=== PATIENT | male | born 1960 | race Caucasian/White ===

== ENCOUNTER 2018-09-11 17:10 | Emergency (ER) | payer BC, OTHER ==
[~2018-09-11] VITALS: Ht 172.7 cm; Wt 108.9 kg
[~2018-09-11 17:10] MED LIST: CYCL10TA9 PO; NAPR-243 PO
--- OUTSIDE RECORDS SUMMARY | 2018-09-11 17:15 | XMS REPORT | Continuity of Care Document ---
Author Organization Unknown Address Unknown Allergies Active Description Code Type Severity Reaction Onset Reported/Identified Relationship to Patient Clinical Status Yes NKANo Known Allergies NKA Miscellaneous Allergy Mild N/A 04/30/2009 Medications There is no data. Problems Date Dx Coded Attending Type Code Diagnosis Diagnosed By 11/19/2011 Ot 723.1 CERVICALGIA 09/12/2012 PAUL HWANG, DOREEN Barrett Ot 784.0 HEADACHE Procedures There is no data. Results There is no data. Encounters ACCT No. Visit Date/Time Discharge Status Pt. Type Provider Facility Loc./Unit Complaint [id number] 09/12/2012 17:29:00 09/12/2012 23:59:59 CLS Outpatient [id number] 09/12/2012 18:24:00 09/12/2012 20:41:00 DIS Emergency DOREEN MILLER MD [facility] ER HEAD PAIN [id number] 09/11/2018 17:11:00 ACT Emergency ABDIRAHMAN FELIX MD [facility] ER L SIDE ABD PAIN [id number] 11/19/2011 02:37:00 Document Registration
--- OUTSIDE RECORDS SUMMARY | 2018-09-11 17:15 | XMS REPORT | Continuity of Care Document ---
Author Author [facility] Organization [facility] Address Unknown Phone Unavailable Care Team Providers Care Production Proofreader Name Role Phone NO, LOCAL PHYSICIAN PP Unavailable Insurance Providers Payer Name Policy Number Subscriber Name [id number] Milly Youssef 02 Advance Directives Directive Response Recorded Date Advance Directives N 09/12/12 6:33pm Problems No Known Problems or Medical conditions. Social History History Response Recorded Date/Time Alcohol Use Rarely Uses 09/12/12 6:33pm Recreational Drug Use N 09/12/12 6:33pm Allergies, Adverse Reactions, Alerts Allergen Type Severity Reaction Last Updated No Known Allergies Allergy Mild 04/30/09 Medications Medication Dose Units Route Sig Qty Days Naproxen (Naprosyn) 800 Mg PO BID PRN Naproxen (Naprosyn) 1 Each PO BID PRN 30 Cyclobenzaprine HCl (Cyclobenzaprine Hcl) 1 Each PO Q8HR PRN 20 Cyclobenzaprine HCl (Cyclobenzaprine Hcl) 1 Each PO Q8HR PRN 20 Naproxen (Naprosyn) 1 Each PO BID PRN 20 Response Recorded Date/Time Status not known Unknown Results Test Date Result Interp. Ref. Range Alanine Aminotransferase (ALT/SGPT) August 28, 2005 12:29pm 63 U/L N 30-65 Albumin August 28, 2005 12:29pm 3.5 G/DL N 3.4-5.0 Alkaline Phosphatase August 28, 2005 12:29pm 71 U/L N 50-136 Aspartate Amino Transf (AST/SGOT) August 28, 2005 12:29pm 21 U/L N 15-37 BUN/Creatinine Ratio August 28, 2005 12:29pm 13 - Basophils # (Auto) September 12, 2012 7:48pm 0.0 10^3/uL N 0.0-0.1 Basophils (%) (Auto) September 12, 2012 7:48pm 1 % N 0-10 Blood Urea Nitrogen August 28, 2005 12:29pm 16 MG/DL N 7-18 Calcium Level August 28, 2005 12:29pm 8.6 MG/DL N 8.5-10.1 Carbon Dioxide Level August 28, 2005 12:29pm 28 MMOL/L N 21-32 Chloride Level August 28, 2005 12:29pm 101 MMOL/L N 101-110 Creatinine August 28, 2005 12:29pm 1.2 MG /DL N 0.6-1.3 Eosinophils # (Auto) September 12, 2012 7:48pm 0.3 10^3/uL N 0.0-0.3 Eosinophils (%) (Auto) September 12, 2012 7:48pm 4 % N 0-10 Glucose Level August 28, 2005 12:29pm 109 MG/DL N 70-126 Hematocrit September 12, 2012 7:48pm 46 % N 40-54 Hemoglobin September 12, 2012 7:48pm 15.6 G/ DL N 13.3-17.7 Lymphocytes # (Auto) September 12, 2012 7:48pm 2.1 X 10^3 N 1.0-4.0 Lymphocytes (%) (Auto) September 12, 2012 7:48pm 27 % N 12-44 Mean Corpuscular Hemoglobin September 12, 2012 7:48pm 30 PG N 25-34 Mean Corpuscular Hemoglobin Concent September 12, 2012 7:48pm 34 G/DL N 32-36 Mean Corpuscular Volume September 12, 2012 7:48pm 88 FL N 80-99 Mean Platelet Volume September 12, 2012 7:48pm 9.5 FL N 7.4-10.4 Monocytes # (Auto) September 12, 2012 7:48pm 0.6 X 10^3 N 0.0-1.0 Monocytes (%) (Auto) September 12, 2012 7:48pm 8 % N 0-12 Neutrophils # (Auto) September 12, 2012 7:48pm 4.6 X 10^3 N 1.8-7.8 Neutrophils (%) (Auto) September 12, 2012 7:48pm 60 % N 42-75 Platelet Count September 12, 2012 7:48pm 278 10^3/uL N 130-400 Potassium Level August 28, 2005 12:29pm 4.7 MMOL/L N 3.6-5.0 Red Blood Count September 12, 2012 7:48pm 5.21 10^6/uL N 4.35-5.85 Red Cell Distribution Width September 12, 2012 7:48pm 13.4 % N 10.0-14.5 Sodium Level August 28, 2005 12:29pm 135 MMOL/L N 135-145 Total Bilirubin August 28, 2005 12:29pm 0.3 MG/DL N 0.0-1.0 Total Protein August 28, 2005 12:29pm 6.6 G/DL N 6.4-8.2 Urine Bacteria August 28, 2005 12:20pm Trace - Urine Bilirubin August 28, 2005 12:20pm Negative - Urine Casts August 28, 2005 12:20pm None - Urine Clarity August 28, 2005 12:20pm Clear - Urine Color August 28, 2005 12:20pm Yellow - Urine Crystals August 28, 2005 12:20pm None - Urine Culture Indicated August 28, 2005 12:20pm Yes - Urine Glucose (UA) August 28, 2005 12:20pm Negative - Urine Ketones August 28, 2005 12:20pm Negative - Urine Leukocyte Esterase August 28, 2005 12:20pm Negative - Urine Mucus August 28, 2005 12:20pm None - Urine Nitrate August 28, 2005 12:20pm Negative - Urine Protein August 28, 2005 12:20pm Negative - Urine RBC August 28, 2005 12:20pm 25-50 / HPF H - Urine Specific [place] August 28, 2005 12:20pm 1.015 L - Urine Squamous Epithelial Cells August 28, 2005 12:20pm 0-2 - Urine Urobilinogen August 28, 2005 12:20pm Normal MG/DL - Urine WBC August 28, 2005 12:20pm 10-25 / HPF H - Urine pH August 28, 2005 12:20pm 8.0 - White Blood Count September 12, 2012 7:48pm 7.6 10^3/uL N 4.3-11.0 Procedures Procedure Code Date Urine Culture 08/28/05 Encounters Encounter Location Date/Time Departed Emergency Room [facility] 6:24pm
[2018-09-11] MEDS ORDERED: ONDANSETRON 4 MG/2 ML (SDV) Z0FRAN ONE (17:34)
--- NOTE | 2018-09-11 17:40 | ED Abdominal Pain ---
General Chief Complaint: Abdominal/GI Problems Stated Complaint: L SIDE ABD PAIN Nursing Triage Note: TO TRIAGE WITH COMPLAINTS OF LEFT SIDED FLANK PAIN THAT STARTED AT 2PM. HX OF KIDNEY STONES. STATES HE TOOK X2 ARTHRITIS PAIN MEDS. Sepsis Screen: No Definite Risk Source of Information: Patient Exam Limitations: No Limitations History of Present Illness Date Seen by Provider: Sep 11, 2018 Time Seen by Provider: 17:39 Initial Comments To ER with reports of left sided flank pain that began suddenly at 2 PM today. He's had some intermittent diaphoresis and nausea. History of kidney stones and this feels similar to his previous kidney stones were on the right side, he's never had a left-sided stone. Stools have been a bit loose today. No dysuria. No fevers chills or vomiting. Timing/Duration: 4-6 Hours Severity/Quality: Severe Location: Flank Radiation: No Radiation Activities at Onset: None Associated Symptoms: Diaphoresis; No Fever/Chills; Nausea/Vomiting Allergies and Home Medications Allergies Coded Allergies: NKANo Known Allergies (Unverified Allergy, Mild, 09/11/18) Home Medications Naproxen 500 Mg Tablet, 800 MG PO BID PRN, (Reported) Patient Home Medication List Home Medication List Reviewed: Yes Review of Systems Review of Systems Constitutional: see HPI, diaphoresis EENTM: No Symptoms Reported Respiratory: No Symptoms Reported Cardiovascular: No Symptoms Reported Gastrointestinal: See HPI, Abdominal Pain, Nausea Genitourinary: See HPI; Denies Frequency; Flank Pain Musculoskeletal: no symptoms reported Skin: no symptoms reported Psychiatric/Neurological: No Symptoms Reported Endocrine: No Symptoms Reported Hematologic/Lymphatic: No Symptoms Reported Past Rfoypfi-Xicozg-Jpezzv Hx Patient Social History Alcohol Use: Regular Use Number of Drinks Today: 2 Alcohol Beverage of Choice: Whiskey Recreational Drug Use: No Smoking Status: Current Everyday Smoker Recent Foreign Travel: No Contact w/Someone Who Travel: No Recent Infectious Disease Expo: No Physical Abuse: No Sexual Abuse: No Mistreated: No Fear: No Seasonal Allergies Seasonal Allergies: No Past Medical History Surgeries: Yes (FEMUR TUMOR, L SHOULDER, KIDNEY STONE) Respiratory: No Cardiac: Yes Angina Neurological: No Kidney Stones Gastrointestinal: No Musculoskeletal: Yes Arthritis, Chronic Back Pain Endocrine: Yes Diabetes, 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 oz. 108.100548pq; BMI Method:Stated General Appearance: WD/WN, no apparent distress HEENT: PERRL/EOMI, normal ENT inspection Neck: non-tender, full range of motion Respiratory: normal breath sounds, no respiratory distress, no accessory muscle use Cardiovascular: regular rate, rhythm, no murmur Gastrointestinal: normal bowel sounds, soft, tenderness Extremities: normal range of motion, non-tender Back: No CVA tenderness (L) Neurologic/Psychiatric: alert, normal mood/affect, oriented x 3 Skin: normal color, warm/dry Progress/Results/Core Measures Results/Orders Lab Results Laboratory Tests Test 09/11/18 17:31 09/11/18 17:42 Range/Units White Blood Count 8.6 4.3-11.0 10^3/uL Red Blood Count 5.08 4.35-5.85 10^6/uL Hemoglobin 15.0 13.3-17.7 G/DL Hematocrit 45 40-54 % Mean Corpuscular Volume 88 80-99 FL Mean Corpuscular Hemoglobin 30 25-34 PG Mean Corpuscular Hemoglobin Concent 34 32-36 G/DL Red Cell Distribution Width 14.8 H 10.0-14.5 % Platelet Count 275 130-400 10^3/uL Mean Platelet Volume 9.4 7.4-10.4 FL Neutrophils (%) (Auto) 68 42-75 % Lymphocytes (%) (Auto) 22 12-44 % Monocytes (%) (Auto) 7 0-12 % Eosinophils (%) (Auto) 3 0-10 % Basophils (%) (Auto) 1 0-10 % Neutrophils # (Auto) 5.8 1.8-7.8 X 10^3 Lymphocytes # (Auto) 1.9 1.0-4.0 X 10^3 Monocytes # (Auto) 0.6 0.0-1.0 X 10^3 Eosinophils # (Auto) 0.2 0.0-0.3 10^3/uL Basophils # (Auto) 0.1 0.0-0.1 10^3/uL Neutrophils % (Manual) 73 % Lymphocytes % (Manual) 5 % Monocytes % (Manual) 1 % Band Neutrophils 20 % Blood Morphology Comment NORMAL Sodium Level 139 135-145 MMOL/L Potassium Level 3.8 3.6-5.0 MMOL/L Chloride Level 104 98-107 MMOL/L Carbon Dioxide Level 18 L 21-32 MMOL/L Anion Gap 17 H 5-14 MMOL/L Blood Urea Nitrogen 13 7-18 MG/DL Creatinine 0.83 0.60-1.30 MG/DL Estimat Glomerular Filtration Rate > 60 BUN/Creatinine Ratio 16 Glucose Level 113 H 70-105 MG/DL Calcium Level 9.5 8.5-10.1 MG/DL Urine Color YELLOW Urine Clarity CLEAR Urine pH 5 5-9 Urine Specific [place] 1.025 H 1.016-1.022 Urine Protein 1+ H NEGATIVE Urine Glucose (UA) NEGATIVE NEGATIVE Urine Ketones 3+ H NEGATIVE Urine Nitrite NEGATIVE NEGATIVE Urine Bilirubin NEGATIVE NEGATIVE Urine Urobilinogen NORMAL NORMAL MG/DL Urine Leukocyte Esterase NEGATIVE NEGATIVE Urine RBC (Auto) 3+ H NEGATIVE Urine RBC 10-25 H /HPF Urine WBC NONE /HPF Urine Squamous Epithelial Cells 2-5 /HPF Urine Crystals NONE /LPF Urine Bacteria NEGATIVE /HPF Urine Casts NONE /LPF Urine Mucus MODERATE H /LPF Urine Culture Indicated NO My Orders Orders - MAG GREER APRN Ua Culture If Indicated (09/11/18 17:31) Cbc And Manual Diff (09/11/18 17:31) Basic Metabolic Panel (09/11/18 17:31) Ed Iv/Invasive Line Start (09/11/18 17:31) Ct Abd/Pelvis Wo(Kidney Stone) (09/11/18 17:31) Abdomen/Kub 1view (09/11/18 17:31) Ns Iv 1000 Ml (Sodium Chloride 0.9%) (09/11/18 17:45) Ketorolac Injection (Toradol Injection) (09/11/18 17:45) Ondansetron Injection (Zofran Injectio (09/11/18 17:34) Fentanyl Injection (Sublimaze Injection (09/11/18 18:30) Promethazine Injection (Phenergan Injec (09/11/18 18:30) Medications Given in ED Current Medications Medications Dose Ordered Sig/Edgar Route Start Time Stop Time Status Last Admin Dose Admin Ketorolac Tromethamine 15 mg ONCE ONCE IVP 09/11/18 17:45 09/11/18 17:46 DC 09/11/18 17:41 15 MG Ondansetron HCl 4 mg STK-MED ONCE .ROUTE 09/11/18 17:34 09/11/18 17:37 DC 09/11/18 17:41 8 MG Vital Signs/I&O 09/11/18 17:10 Temp 97.7 Pulse 81 Resp 16 B/P (MAP) 142/101 (115) Pulse Ox 96 O2 Delivery Room Air Blood Pressure Mean: 115 Diagnostic Imaging Diagonstic Imaging: CT Comments [facility] REC#: [id number] PT STATUS: REG ER : 1960 PHYSICIAN: MAG GREER APRN ADMIT DATE: 09/11/18/ER Draft Date of Exam:09/11/18 CT ABD/PELVIS WO(KIDNEY STONE) PROCEDURE: CT urinary tract, rule out kidney stone. TECHNIQUE: Multiple contiguous axial images were obtained through the abdomen and pelvis without the use of intravenous contrast. Auto Exposure Controls were utilized during the CT exam to meet ALARA standards for radiation dose reduction. INDICATION: Left flank pain The lung bases are clear. There is fatty infiltration of the liver. Pancreas is not enlarged. Spleen is normal. Adrenals are normal. There is no mass, calculus or hydronephrosis seen in either kidney. There is a 1 cm low-density area in the lateral margin of the left kidney that is probably a cyst but nonemergent evaluation with ultrasound and/or contrast CT would be more definitive. Appendix is normal. Small bowel is not dilated. Colon is unremarkable. There is some calcific atherosclerosis of the aorta but no aneurysm. There is a left inguinal hernia containing fat. Prostate is not enlarged. There is a 3 mm calculus in the urinary bladder that could be a recently passed stone. IMPRESSION: There is a 3 mm calculus in the bladder. There is hepatic steatosis. There is left inguinal hernia containing fat. Dictated on workstation # [id number] Dict: 09/11/18 1819 Trans: 09/11/18 1826 [id number] [id number] Interpreted by: MARCELINO ROSARIO MD Electronically signed by: Departure Communication (Admissions) NAME: [facility] REC#: [id number] PT STATUS: REG ER : 1960 PHYSICIAN: MAG GREER APRN ADMIT DATE: 09/11/18/ER Draft Date of Exam:09/11/18 CT ABD/PELVIS WO(KIDNEY STONE) PROCEDURE: CT urinary tract, rule out kidney stone. TECHNIQUE: Multiple contiguous axial images were obtained through the abdomen and pelvis without the use of intravenous contrast. Auto Exposure Controls were utilized during the CT exam to meet ALARA standards for radiation dose reduction. INDICATION: Left flank pain The lung bases are clear. There is fatty infiltration of the liver. Pancreas is not enlarged. Spleen is normal. Adrenals are normal. There is no mass, calculus or hydronephrosis seen in either kidney. There is a 1 cm low-density area in the lateral margin of the left kidney that is probably a cyst but nonemergent evaluation with ultrasound and/or contrast CT would be more definitive. Appendix is normal. Small bowel is not dilated. Colon is unremarkable. There is some calcific atherosclerosis of the aorta but no aneurysm. There is a left inguinal hernia containing fat. Prostate is not enlarged. There is a 3 mm calculus in the urinary bladder that could be a recently passed stone. IMPRESSION: There is a 3 mm calculus in the bladder. There is hepatic steatosis. There is left inguinal hernia containing fat. Dictated on workstation # [id number] Dict: 09/11/18 1819 Trans: 09/11/18 1826 GIO [id number] Interpreted by: MARCELINO ROSARIO MD Electronically signed by: Impression Primary Impression: Kidney stone Disposition: 01 HOME, SELF-CARE Condition: Stable Departure-Patient Inst. Decision time for Depature: 18:29 Referrals: NO,LOCAL PHYSICIAN (PCP/Family) Primary Care Physician Patient Instructions: Kidney Stones (DC) Add. Discharge Instructions: 1. You have recently passed a kidney stone. Her pain should improve in the next couple of hours. You have an area on the left kidney that is most likely a benign cyst however you should have an ultrasound of the left kidney in the next month or so to further evaluate and confirm that diagnosis. Your primary care provider and arrange that. All discharge instructions reviewed with patient and/or family. Voiced understanding. Scripts Ondansetron (Ondansetron Odt) 8 Mg Tab.rapdis 8 MG PO Q6H PRN for NAUSEA/VOMITING, #10 TAB Prov: MAG GREER APRN 09/11/18 Hydrocodone/Acetaminophen ([place] 5-325 Tablet) 1 Each Tablet 1 EACH PO Q6H PRN for PAIN-MODERATE MDD 10, #10 TAB Prov: MAG GREER APRN 09/11/18 MAG GREER APRN Sep 11, 2018 17:40
[2018-09-11 17:45] LABS: BASOPHILS # (AUTO) 0.1 10^3/uL (0.0-0.1); BASOPHILS % (AUTO) 1 % (0-10); EOSINOPHILS # (AUTO) 0.2 10^3/uL (0.0-0.3); EOSINOPHILS % (AUTO) 3 % (0-10); HEMATOCRIT 45 % (40-54); LYMPHOCYTES # (AUTO) 1.9 X 10^3 (1.0-4.0); LYMPHOCYTES % (AUTO) 22 % (12-44); MEAN CORPUSCULAR HEMOGLOBIN 30 PG (25-34); MEAN CORPUSCULAR HGB CONC 34 G/DL (32-36); MEAN CORPUSCULAR VOLUME 88 FL (80-99); MEAN PLATELET VOLUME 9.4 FL (7.4-10.4); MONOCYTES # (AUTO) 0.6 X 10^3 (0.0-1.0); MONOCYTES % (AUTO) 7 % (0-12); NEUTROPHILS # (AUTO) 5.8 X 10^3 (1.8-7.8); NEUTROPHILS % (AUTO) 68 % (42-75); PLATELET COUNT 275 10^3/uL (130-400); RED CELL DISTRIBUTION WIDTH 14.8 % (10.0-14.5); WHITE BLOOD COUNT 8.6 10^3/uL (4.3-11.0)
[2018-09-11] MEDS ORDERED: NS IV 1000 ML 1,000 ML IV SCH (17:45)
[2018-09-11] MEDS ORDERED: KETOROLAC 30 MG/ML VIAL IVP ONE (17:45)
[2018-09-11 17:50] LABS: BILIRUBIN,URINE NEGATIVE (NEGATIVE); CLARITY,URINE CLEAR; COLOR,URINE YELLOW; GLUCOSE, URINE (UA) NEGATIVE (NEGATIVE); KETONES,URINE 3+ (NEGATIVE); LEUKOCYTE ESTERASE ,URINE NEGATIVE (NEGATIVE); NITRITE,URINE NEGATIVE (NEGATIVE); PH,URINE 5 (5-9); PROTEIN,URINE 1+ (NEGATIVE); UROBILINOGEN,URINE NORMAL (NORMAL)
[2018-09-11 17:57] LABS: BACTERIA,URINE NEGATIVE /HPF
[2018-09-11 18:02] LABS: BAND NEUTROPHILS 20 %; LYMPHOCYTES % (MANUAL) 5 %; MONOCYTES % (MANUAL) 1 %; NEUTROPHILS % (MANUAL) 73 %; RBC MORPH NORMAL
[2018-09-11 18:04] LABS: BUN/CREATININE RATIO 16; CALCIUM 9.5 MG/DL (8.5-10.1); CARBON DIOXIDE 18 MMOL/L (21-32); CHLORIDE 104 MMOL/L (98-107); CREATININE SERUM 0.83 MG/DL (0.60-1.30); GFR ESTIMATED > 60; GLUCOSE 113 MG/DL (70-105); POTASSIUM 3.8 MMOL/L (3.6-5.0); SODIUM 139 MMOL/L (135-145)
--- NOTE | 2018-09-11 18:17 | Diagnostic Imaging Report ---
INDICATION: Left-sided flank pain. TIME OF EXAM: 06:06 p.m. COMPARISON: No prior studies are available for comparison. FINDINGS: Bowel gas pattern is unremarkable. No definite radiopaque renal calculi are seen. No calculus along the course of the ureters is seen. Left-sided pelvic calcification is noted in the left paramidline location, indeterminate. This could conceivably represent a UVJ calculus. This is 2-3 mm in size. IMPRESSION: Left pelvic calcification, considerations as above. No other significant abnormality is seen. Dictated by: Dictated on workstation # [id number]
--- NOTE | 2018-09-11 18:27 | Diagnostic Imaging Report ---
PROCEDURE: CT urinary tract, rule out kidney stone. TECHNIQUE: Multiple contiguous axial images were obtained through the abdomen and pelvis without the use of intravenous contrast. Auto Exposure Controls were utilized during the CT exam to meet ALARA standards for radiation dose reduction. INDICATION: Left flank pain The lung bases are clear. There is fatty infiltration of the liver. Pancreas is not enlarged. Spleen is normal. Adrenals are normal. There is no mass, calculus or hydronephrosis seen in either kidney. There is a 1 cm low-density area in the lateral margin of the left kidney that is probably a cyst but nonemergent evaluation with ultrasound and/or contrast CT would be more definitive. Appendix is normal. Small bowel is not dilated. Colon is unremarkable. There is some calcific atherosclerosis of the aorta but no aneurysm. There is a left inguinal hernia containing fat. Prostate is not enlarged. There is a 3 mm calculus in the urinary bladder that could be a recently passed stone. IMPRESSION: There is a 3 mm calculus in the bladder. There is hepatic steatosis. There is left inguinal hernia containing fat. Dictated by: Dictated on workstation # [id number]
[2018-09-11] MEDS ORDERED: PROMETHAZINE INJ 25 MG/ML (PHENERGAN) AMP IVP ONE (18:30)
[2018-09-11] MEDS ORDERED: fentaNYL INJECTION 100 MCG/2 ML AMP IVP ONE (18:30)
[2018-09-11] MEDS ORDERED: HYDR-4226 PO (18:31)
[2018-09-11] MEDS ORDERED: ONDA8TAB13 PO (18:31)
--- NOTE | 2018-09-11 18:50 | NUR ---
spo2 did drop to 90% after pain meds. Will increase with deep breath. At rest stays at 90% 2l/min nc on. Spo2 to 96%. patient is alert but drowsy
--- NOTE | 2018-09-11 19:00 | NUR ---
alert and no issues with resp. o2 dc- spo2 remains >95%
[2018-09-11 19:05] VITALS: BP 137/102
== END 2018-09-11 19:05 | disposition home or self-care (01) ==
LOC: EDUNIT# 17:10 → ER 17:11
DX: N20.1 Calculus of ureter (principal); E11.9 Type 2 diabetes mellitus without complications; F17.200 Nicotine dependence, unspecified, uncomplicated; Z87.442 Personal history of urinary calculi; Z85.830 Personal history of malignant neoplasm of bone
CPT/HCPCS: 36415; 74018; 74176; 80048; 81000; 85007; 85027

== ENCOUNTER 2019-02-20 10:12 | Emergency (ER) | payer OTHER ==
[~2019-02-20] VITALS: Ht 172.2 cm; Wt 95.0 kg
[~2019-02-20 10:12] MED LIST changes: +HYDR-4226 PO; +ONDA8TAB13 PO
[2019-02-20] MEDS ORDERED: TETANUS,DIPTH,PERTUSS P/F (BOOSTRIX) 0.5 ML VIAL IM ONE (11:30)
[2019-02-20] MEDS ORDERED: HYDROcodone/APAP 5 MG/325 MG (LORTAB) TAB PO ONE (11:30)
[2019-02-20] MEDS ORDERED: CEPHALEXIN 250 MG (KEFLEX) CAP PO ONE (11:30)
--- NOTE | 2019-02-20 11:34 | ED Fall/Injury ---
General Chief Complaint: Trauma-Non Activation Stated Complaint: FALL - R EYE LAC - R WRIST PAIN Source: patient Exam Limitations: no limitations History of Present Illness Date Seen by Provider: Feb 20, 2019 Time Seen by Provider: 11:32 Initial Comments To ER per private vehicle with reports of a fall injury. He was walking down his stairs on the porch trying to reach around and trim some bushes. He missed the last step and fell forward. As a right eyebrow laceration right wrist pain left finger/hand pain. Tetanus is not up-to-date. Occurred: just prior to arrival Severity: moderate Injuries/Pain Location: head, face, upper extremity Associated Symptoms (Fall): No Neck Pain Allergies and Home Medications Allergies Coded Allergies: NKANo Known Allergies (Unverified Allergy, Mild, 09/11/18) Home Medications Cephalexin 500 Mg Capsule, 500 MG PO TID Prescribed by: MAG GREER on 02/20/19 1250 Hydrocodone/Acetaminophen 1 Each Tablet, 1 EACH PO Q6H PRN for PAIN-MODERATE Prescribed by: MAG GREER on 09/11/18 183 Hydrocodone/Acetaminophen 1 Each Tablet, 1 TAB PO Q4-6HR Prescribed by: MAG GREER on 02/20/19 1250 Naproxen 500 Mg Tablet, 800 MG PO BID PRN, (Reported) Ondansetron 8 Mg Tab.rapdis, 8 MG PO Q6H PRN for NAUSEA/VOMITING Prescribed by: MAG GREER on 09/11/18 183 Patient Home Medication List Home Medication List Reviewed: Yes Review of Systems Review of Systems Constitutional: see HPI Eyes: No Symptoms Reported Ears, Nose, Mouth, Throat: no symptoms reported Respiratory: no symptoms reported Cardiovascular: no symptoms reported Genitourinary: no symptoms reported Musculoskeletal: see HPI Skin: no symptoms reported Psychiatric/Neurological: No Symptoms Reported Past Uccizsg-Fiwrmk-Zkgwga Hx Patient Social History Alcohol Beverage of Choice: Whiskey Recent Foreign Travel: No Contact w/Someone Who Travel: No Seasonal Allergies Seasonal Allergies: No Past Medical History Surgeries: Yes (FEMUR TUMOR, L SHOULDER, KIDNEY STONE) Respiratory: No Cardiac: Yes Angina Neurological: No Kidney Stones Gastrointestinal: No Musculoskeletal: Yes Arthritis, Chronic Back Pain Endocrine: Yes Diabetes, 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 oz. 108.113283mo; BMI Method:Stated General Appearance: WD/WN, no apparent distress HEENT: PERRL/EOMI, normal ENT inspection, TMs normal Neck: non-tender, full range of motion Respiratory: no respiratory distress, no accessory muscle use Gastrointestinal: normal bowel sounds, non tender, soft Extremities: other (limited range of motion at the right wrist with a bit of swelling. There are some skin abrasions and ecchymosis to the dorsal aspect of the knuckles on the left hand with ecchymosis over the pinky finger.) Neurologic/Psychiatric: alert, normal mood/affect, oriented x 3 Skin: normal color, warm/dry Alfonso Coma Score Best Eye Response: (4) Open Spontaneously Best Verbal Response: (5) Oriented Best Motor Response: (6) Obeys Commands Alfonso Total: 15 Procedures/Interventions Wound Location: Face Wound Length (cm): 3 Wound's Depth, Shape: linear, sub Q Wound Explored: clean Anesthesia: 1% Lidocaine Volume Anesthetic (ccs): 3 Suture: Prolene Suture Size: 5-0 Number of Sutures: 1 (Continuous) Layer Closure?: 1 Number Deep Layer Sutures: 0 Progress/Results/Core Measures Results/Orders My Orders Orders - MAG GREER APRN Ct Head/Cervical Spine Wo (02/20/19 11:22) Wrist, Right, 3 Views Or More (02/20/19 11:22) Hand, Left, 3 Views (02/20/19 11:22) Dipht,Pertuss(Acell),Tet Adult (Boostrix (02/20/19 11:30) Cephalexin Capsule (Keflex Capsule) (02/20/19 11:30) Hydrocodone/Apap 5/325 Tablet (Lortab 5 (02/20/19 11:30) Medications Given in ED Current Medications Medications Dose Ordered Sig/Edgar Route Start Time Stop Time Status Last Admin Dose Admin Acetaminophen/ Hydrocodone Bitart 1 tab ONCE ONCE PO 02/20/19 11:30 02/20/19 11:31 DC 02/20/19 11:33 1 TAB Cephalexin HCl 500 mg ONCE ONCE PO 10/5/19 11:30 02/20/19 11:31 DC 02/20/19 11:34 500 MG Diphtheria/ Tetanus/Acell Pertussis 0.5 ml ONCE ONCE IM 02/20/19 11:30 02/20/19 11:31 DC 02/20/19 11:36 0.5 ML Vital Signs/I&O 02/20/19 11:20 Pulse 91 Resp 18 B/P (MAP) 114/89 (97) Pulse Ox 94 O2 Delivery Room Air Departure Impression Primary Impression: Eyebrow laceration Qualified Codes: S01.111A - Laceration without foreign body of right eyelid and periocular area, initial encounter Additional Impressions: Fall Qualified Codes: W19.XXXA - Unspecified fall, initial encounter Right wrist fracture Qualified Codes: S62.101A - Fracture of unspecified carpal bone, right wrist, initial encounter for closed fracture Disposition: HOME, SELF-CARE Condition: Stable Departure-Patient Inst. Decision time for Depature: 12:49 Referrals: KRISS FINNEGAN MD,LOCAL PHYSICIAN (PCP) Primary Care Physician HERBIE AL MD, ROBERT F DO ZAFUTA, MICHAEL P MD Patient Instructions: Laceration Repair With Stitches (DC), Wrist Fracture (DC) Add. Discharge Instructions: . Call orthopedic surgeon of your choosing for follow-up on the wrist fracture. 1. Return to ER for any concerns 2. Follow-up with your doctor next week 3. All discharge instructions reviewed with patient and/or family. Voiced understanding. Scripts Cephalexin (Keflex) 500 Mg Capsule 500 MG PO TID, #14 CAP Prov: MAG GREER [employer]ENT PRODUCER 02/20/19 Hydrocodone/Acetaminophen ([place] 5-325 Tablet) 1 Each Tablet 1 TAB PO Q4-6HR for Pain MDD 10 TABS for 7 Days, #14 TAB Prov: MAG GREER [employer] PRODUCER 02/20/19 MAG GREER [employer] PRODUCER Feb 20, 2019 11:34
--- NOTE | 2019-02-20 12:08 | Diagnostic Imaging Report ---
PROCEDURE: CT head and CT cervical spine without contrast. TECHNIQUE: Multiple contiguous axial images were obtained through the brain and cervical spine without the use of intravenous contrast. Sagittal and coronal reformations through the cervical spine were then performed. Auto Exposure Controls were utilized during the CT exam to meet ALARA standards for radiation dose reduction. INDICATION: Head and neck pain after fall, patient struck right orbit on concrete. COMPARISON: None. DISCUSSION: Head: No acute intracranial hemorrhage, mass, midline shift, or hydrocephalus. Prominent Virchow-Ryan space noted along the left basal ganglia, incidental. The ventricles and sulci are normal in size and configuration for age. The orbits, sinuses, mastoid air cells, and calvarium are unremarkable. Mild right supraorbital soft tissue swelling and soft tissue wound. Cervical spine: There is straightening of the normal cervical lordosis. There is moderate degenerative disc disease present at C6-C7. No acute fracture identified. Paraspinal soft tissues are unremarkable. IMPRESSION: 1. Right periorbital soft tissue swelling. No acute intracranial abnormality identified. 2. Negative cervical spine CT. Dictated by: Dictated on workstation # [id number]
--- NOTE | 2019-02-20 12:36 | Diagnostic Imaging Report ---
Indication: Fall with left hand pain and swelling. Comparison: None. Discussion: Three views of left hand were obtained. No acute fracture, dislocation, or other osseous abnormality identified. No significant degenerative disease. Alignment is anatomic. Soft tissues are unremarkable. Impression: 1. Negative left hand. Dictated by: Dictated on workstation # [id number]
--- NOTE | 2019-02-20 12:37 | Diagnostic Imaging Report ---
Indication: Fall with right wrist pain. Comparison: None. Discussion: Three views of the right wrist were obtained. Irregularity along the dorsal aspect of the wrist on the lateral view is concerning for a small triquetral fracture. No other fracture or dislocation. Joint spaces are maintained. Alignment is anatomic. Soft tissues are unremarkable. Impression: 1. Suspect acute triquetral fracture, only seen on the lateral view. Dictated by: Dictated on workstation # [id number]
[2019-02-20] MEDS ORDERED: CEPH-507 PO (12:50)
[2019-02-20] MEDS ORDERED: HYDR-4226 PO (12:50)
[2019-02-20 13:24] VITALS: BP 144/100
== END 2019-02-20 13:24 | disposition home or self-care (01) ==
LOC: EDUNIT# 10:12 → ER 10:13
DX: S62.101A Fracture of unspecified carpal bone, right wrist, initial encounter for closed fracture (principal); S01.111A Laceration without foreign body of right eyelid and periocular area, initial encounter; E11.9 Type 2 diabetes mellitus without complications; R40.2142 Coma scale, eyes open, spontaneous, at arrival to emergency department; R40.2252 Coma scale, best verbal response, oriented, at arrival to emergency department; R40.2362 Coma scale, best motor response, obeys commands, at arrival to emergency department; Z87.442 Personal history of urinary calculi; Z85.830 Personal history of malignant neoplasm of bone; W10.9XXA Fall (on) (from) unspecified stairs and steps, initial encounter
CPT/HCPCS: 29125; 70450; 72125; 73110; 73130; 90715

== ENCOUNTER 2020-04-17 05:30 | Outpatient (RCR) | payer OTHER ==
[~2020-04-17 05:30] MED LIST changes: +CEPH-507 PO
== END 2020-04-17 14:56 | disposition home or self-care (01) ==
LOC: PREOP 05:30
PROVIDERS: ATTEND Surgery
DX: Z01.812 Encounter for preprocedural laboratory examination (principal); K42.9 Umbilical hernia without obstruction or gangrene; Z20.828 Contact with and (suspected) exposure to other viral communicable diseases
CPT/HCPCS: 87635

== ENCOUNTER 2020-04-19 06:43 | Day surgery (SDC) | payer OTHER ==
[~2020-04-19] VITALS: Ht 172.7 cm; Wt 102.3 kg
[2020-04-19] VITALS (11 sets, daily range): BP systolic 136–160; BP diastolic 89–98
[2020-04-19] MEDS ORDERED: ONDANSETRON 4 MG/2 ML (SDV) Z0FRAN ONE (07:20)
[2020-04-19] MEDS ORDERED: fentaNYL INJECTION 100 MCG/2 ML AMP ONE (07:20)
[2020-04-19] MEDS ORDERED: NEOSTIGMINE 3 MG/3 ML VIAL ONE (07:20)
[2020-04-19] MEDS ORDERED: GLYCOPYRROLATE 0.2 MG/ML (ROBINUL) 2 ML VIAL ONE (07:20)
[2020-04-19] MEDS ORDERED: MIDAZOLAM 2 MG/2 ML (VERSED) VIAL ONE (07:20)
[2020-04-19] MEDS ORDERED: SEVOFLURANE (ULTANE) 15 ML INHAL SOLN ONE (07:20)
[2020-04-19] MEDS ORDERED: ROCURONIUM 10 MG/ML 5 ML SYRINGE IV ONE (07:20)
[2020-04-19] MEDS ORDERED: proPOfol 200 MG/20 ML (DIPRIVAN) VIAL IV ONE ×2 (07:20→09:15)
[2020-04-19] MEDS ORDERED: LIDOCAINE/EPI 1%-1:100,000 (XYLOCAINE) 20ML ONE (07:25)
[2020-04-19] MEDS ORDERED: LACTATED RINGERS 1,000 ML IV PRN (07:31)
[2020-04-19] MEDS ORDERED: ceFAZolin 2 GM IV Premixed 50 ML IV ONE (07:45)
--- NOTE | 2020-04-19 08:02 | Progress Note-Pre Operative ---
Pre-Operative Progress Note H&P Reviewed The H&P was reviewed, patient examined and no changes noted. Time Seen by Provider: 07:58 Date H&P Reviewed: Apr 19, 2020 Time H&P Reviewed: 07:59 Pre-Operative Diagnosis: Incarcerated Umbilical hernia HERBERT VACA DO Apr 19, 2020 08:02
[2020-04-19] MEDS ORDERED: SUMA25TA3 PO (08:07)
[2020-04-19 08:09] LABS: BASOPHILS # (AUTO) 0.1 10^3/uL (0.0-0.1); BASOPHILS % (AUTO) 1 % (0-10); EOSINOPHILS # (AUTO) 0.3 10^3/uL (0.0-0.3); EOSINOPHILS % (AUTO) 4 % (0-10); HEMATOCRIT 44 % (40-54); HEMOGLOBIN 14.9 g/dL (13.3-17.7); LYMPHOCYTES # (AUTO) 1.7 10^3/uL (1.0-4.0); LYMPHOCYTES % (AUTO) 26 % (12-44); MEAN CORPUSCULAR HEMOGLOBIN 32 pg (25-34); MEAN CORPUSCULAR HGB CONC 34 g/dL (32-36); MEAN CORPUSCULAR VOLUME 95 fL (80-99); MEAN PLATELET VOLUME 9.3 fL (9.0-12.2); MONOCYTES # (AUTO) 0.6 10^3/uL (0.0-1.0); MONOCYTES % (AUTO) 9 % (0-12); NEUTROPHILS # (AUTO) 3.9 10^3/uL (1.8-7.8); NEUTROPHILS % (AUTO) 59 % (42-75); PLATELET COUNT 227 10^3/uL (130-400); WHITE BLOOD COUNT 6.6 10^3/uL (4.3-11.0)
[2020-04-19] MEDS ORDERED: HYDROmorphone 2 MG/ML VIAL (DILAUDID) ONE (09:02)
--- NOTE | 2020-04-19 09:03 | Progress Note-Post Operative ---
Post-Operative Progess Note Surgeon (s)/Engineering Professor (s) Surgeon HERBERT VACA DO Engineering Professor: XIOMY Snyder Pre-Operative Diagnosis Incarcerated Umbilical hernia Post-Operative Diagnosis same Procedure & Operative Findings Date of Procedure 04/19/20 Procedure Performed/Findings PROCEDURE: Laparoscopic [umbilical] hernia repair with mesh. COMPLICATIONS: None. INDICATIONS: The patient is a 60, male with an incarcerated umbilical hernia, which has continued to increase in size and cause discomfort. The patient was explained the risk and benefits of the procedure and wished to proceed with the procedure. Consent was signed on the chart. DESCRIPTION OF PROCEDURE: The patient was taken into the operating suite, prepped and draped in sterile fashion. Surgical pause was performed. Local anesthetic was infiltrated in left upper quadrant. A #11 blade scalpel was used to make a small skin incision. Cautery was used to dissect down to the fascia, which was then scored and divided the muscle, went through the posterior sheath and a balloon trocar was inserted into the abdomen. The abdomen was then insufflated. Incarcerated umbilical hernia was seen and pictures were taken. A 5 mm trocar was placed in the right lower quadrant and a 5 mm trocar was placed in left lower quadrant. Echo Ventralight mesh was then inserted in the abdomen grabbed through the stab incision. The balloon was inflated on the mesh. Circumferential tacks were placed with a SecureStrap Tacker. The balloon was then removed and inner crown was created as well. The mesh was tacked with pressure being decreased. The 12 mm fascial defect was then closed using 0 Vicryl. The abdomen was then desufflated,the trocars were removed. The skin was then closed using 4-0 Monocryl in a running subcuticular fashion. The abdomen was washed and dried and Skin Affix was placed over the incisions. The patient tolerated procedure well without any complications. He was taken to recovery room in stable condition. Anesthesia Type GET Estimated Blood Loss Estimated blood loss (mL): scant Specimens/Packing Specimens Removed none HERBERT VACA DO Apr 19, 2020 09:03
[2020-04-19] MEDS ORDERED: HYDR-4226 PO (09:05)
[2020-04-19] MEDS ORDERED: SUMA50TA2 PO (09:05)
--- NOTE | 2020-04-19 09:05 | Discharge Inst-Surgical ---
Discharge Inst-Surgical Depart Medication/Instructions New, Converted or Re-Newed RX: RX Given to Pt/Family Patient Instructions Follow up Appt: Make appointment for 1 week. [phone] Instructions: No lifting greater than 20 pounds. No strenuous activity. May shower in 24 hours, no tub bath or soaking. Use incentive spirometer at home as directed. No Smoking Skin/Wound Care: May remove bandages in am. You need to leave the Dermabond on incision it will fall off on it's own. Symptoms to Report: Appetite Changes, Extremity Discoloration, Numbness/Tingling, Swelling Increased, Bleeding Excessive, Eyesight Changes, Pain Increased, Urine Color Change, Constipation(Persistent), Fever over 101 degree F, Pain/Pressure in chest, Urinating Difficulty, Cough Up/Vomit Blood, Heart Beat Irreg/Pounding, Pain/Pressure in jaw, Cramps in feet or legs, Lightheadedness, Pain/Pressure in shoulder, Diarrhea(Persistent), Memory Changes Suddenly, Questions/Concerns, Weight gain consecutive days, Dizziness/Fainting, Nausea/Vomiting, Shortness of Breath, Weight gain over 2 pounds If questions or concerns contact your physician Or seek help at emergency department. Activity Activity as Tolerated: Yes Driving Instructions: No Driving/Refer to Dr. Fay Discharge Diet: No Restrictions Diet After 24 Hours: Clear Liquid if Nauseous If Any Problems/Questions/Issu: Contact Your Physician, Go to Emergency Room Skin/Wound Care Infection Signs and Symptoms: Increased Redness, Foul Odor of Wound, Increased Drainage, Skin Itchy or Has a Rash, Increased Swelling, Temperature Above 101 F Wound Care Comment: heating pad to shoulder or neck tonight for pain Bathing Instructions: Shower Stitches/Ximena/Dermabond Dis: Dermabond Ice Pack: Ice On and Off Site (at incisions as needed for pain) HERBERT VACA DO Apr 19, 2020 09:05
[2020-04-19] MEDS ORDERED: ESMOLOL 100 MG/10 ML (BREVIBLOC) VIAL ONE (09:15)
[2020-04-19] MEDS ORDERED: ONDANSETRON 4 MG/2 ML (SDV) Z0FRAN IVP PRN (09:30)
[2020-04-19] MEDS ORDERED: HYDROmorphone 2 MG/ML VIAL (DILAUDID) IV ONE (09:30)
[2020-04-19] MEDS ORDERED: morphine INJ 10 MG/ML 1ML (SYR OR VIAL) IVP ONE (09:30)
--- NOTE | 2020-04-19 10:05 | NUR ---
TO AMB SURG FROM PAR PER CART. ALERT, RATES ABDOMINAL SURGICAL SITE PAIN 3. LARGE BANDAIDS X3 OVER LAP ABD SITES AND TONSIL SPONGE/OPSITE AT UMBILICUS, ICE PACK ON. PO FLUIDS PROVIDED. ALERT.
--- NOTE | 2020-04-19 10:44 | Anesthesia-General Post-Op ---
General Patient Condition Mental Status/LOC: Same as Preop Cardiovascular: Satisfactory Nausea/Vomiting: Absent Respiratory: Satisfactory Pain: Controlled Complications: Absent Post Op Complications Complications None Follow Up Care/Instructions Patient Instructions None needed. Anesthesia/Patient Condition Patient Condition Patient is doing well, no complaints, stable vital signs, no apparent adverse anesthesia problems. KATHERINE COOLEY DO Apr 19, 2020 10:44
[2020-04-19] MEDS ORDERED: HYDROcodone/APAP 5 MG/325 MG (LORTAB) TAB PO ONE (11:00)
--- NOTE | 2020-04-19 11:00 | NUR ---
CONTINUES TO RATE ABDOMINAL/SURGICAL SITE PAIN 3. LORTAB 5/325 MG, ONE TAB, GIVEN PO FOR PAIN CONTROL.
--- NOTE | 2020-04-19 12:00 | NUR ---
REQUESTING DISMISSAL. NO CHANGE IN SURGICAL SITE ASSESSMENT. RATES PAIN 2. TAKING PO FLUIDS WITHOUT PROBLEM. INSTRUCTED ON INCENTIVE SPIROMETRY WITH RETURN DEMONSTRATION.
== END 2020-04-19 12:15 | disposition home or self-care (01) ==
LOC: SDC 06:43
PROVIDERS: ATTEND Surgery
DX: K42.0 Umbilical hernia with obstruction, without gangrene (principal); G43.909 Migraine, unspecified, not intractable, without status migrainosus; I10 Essential (primary) hypertension; M62.08 Separation of muscle (nontraumatic), other site; E66.9 Obesity, unspecified; Z68.34 Body mass index [BMI] 34.0-34.9, adult; Z79.899 Other long term (current) drug therapy; Z83.3 Family history of diabetes mellitus
CPT/HCPCS: 36415; 85025; 87081

== ENCOUNTER 2022-10-23 09:34 | Emergency (ER) | payer OTHER ==
[~2022-10-23] VITALS: Ht 172.7 cm; Wt 103.0 kg
[~2022-10-23 09:34] MED LIST changes: +SUMA25TA3 PO; +SUMA50TA2 PO
[2022-10-23 09:50] LABS: BASOPHILS # (AUTO) 0.1 10^3/uL (0.0-0.1); BASOPHILS % (AUTO) 1 % (0-10); EOSINOPHILS # (AUTO) 0.3 10^3/uL (0.0-0.3); EOSINOPHILS % (AUTO) 4 % (0-10); HEMATOCRIT 45 % (40-54); HEMOGLOBIN 15.1 g/dL (13.3-17.7); LYMPHOCYTES # (AUTO) 1.3 10^3/uL (1.0-4.0); LYMPHOCYTES % (AUTO) 18 % (12-44); MEAN CORPUSCULAR HEMOGLOBIN 32 pg (25-34); MEAN CORPUSCULAR HGB CONC 34 g/dL (32-36); MEAN CORPUSCULAR VOLUME 95 fL (80-99); MEAN PLATELET VOLUME 8.8 fL (9.0-12.2); MONOCYTES # (AUTO) 0.5 10^3/uL (0.0-1.0); MONOCYTES % (AUTO) 7 % (0-12); NEUTROPHILS # (AUTO) 5.3 10^3/uL (1.8-7.8); NEUTROPHILS % (AUTO) 71 % (42-75); PLATELET COUNT 228 10^3/uL (130-400); WHITE BLOOD COUNT 7.5 10^3/uL (4.3-11.0)
--- NOTE | 2022-10-23 09:58 | ED Neurological Problem ---
General Chief Complaint: Neuro-Stroke Like Symptoms Stated Complaint: POSSIBLE STROKE Nursing Triage Note: PT BROUGHT IN BY [facility] FROM HOME WITH COMPLAINT OF RIGHT SIDE WEAKNESS. EMS WAS CALLED BY BYSTANDER WHO WAS DRIVING BY AND SAW PT LAYING ON THE PORCH. UNKNOWN HOW LONG PT HAD BEEN ON PORCH. EMS STATES PT HAD RIGHT SIDE WEAKNESS. WAS ABLE TO TELL THEM HIS NAME. PT IS ALERT ON ARRIVAL TO PLACE AND PERSON. Source: EMS Exam Limitations: clinical condition History of Present Illness Date Seen by Provider: Oct 23, 2022 Time Seen by Provider: 09:42 Initial Comments Patient is a 62-year-old male who presents to the emergency room by EMS after being found by a passerby collapsed on his front porch. EMS reports the patient had profound right-sided weakness and neglect. His gaze is deviated to the left. Patient has dysarthria and some aphasia. He is able to speak his name and answer yes and no questions. He is having a hard time following commands. NIH difficult to assess because of this however at presentation is at least 19. No obvious outward signs of trauma. Patient denies neck pain. Patient himself states that his symptoms had started less than an hour prior to arrival in the emergency department. Of note he is moving his right upper extremity, not the right lower. He is able to overcome gravity and do a light squeeze with his right hand. It is ataxic. He is agitated, most frustrated with his dysarthria. Seems to be somewhat aphasic too.. Expressive. Timing/Duration: other (Unsure) Severity: severe Associated Symptoms: slurred speech, vision changes, weakness Allergies and Home Medications Allergies Coded Allergies: NKANo Known Allergies (Unverified Allergy, Mild, 09/11/18) Patient Home Medication List Home Medication List Reviewed: Yes Hydrocodone/Acetaminophen (Hydrocodone/Acetaminophen 5 MG/325 MG TAB) 1 Each Tablet, 1 TAB PO Q6H Prescribed by: HERBERT VACA on 04/19/20904 Sumatriptan Succinate (Sumatriptan Succinate) 50 Mg Tablet, 50 MG PO UD, (Reported) Entered as Reported by: TATYANA MENDEZ on 04/19/20904 Review of Systems Review of Systems Constitutional: see HPI Unable to assess review of systems, HPI secondary to patient's strokelike symptoms Past Jcikuur-Eovxbe-Wafgbf Hx Seasonal Allergies Seasonal Allergies: No Past Medical History Surgeries: Yes (FEMUR TUMOR, L SHOULDER, KIDNEY STONE) Respiratory: No Currently Using CPAP: No Currently Using BIPAP: No Cardiac: Yes (STRESS INDUCED ANGINA WITH CLEAN HEART CATH, AGE 38) Angina Neurological: Yes Headaches /Migraines Genitourinary: Yes Kidney Stones Gastrointestinal: No Musculoskeletal: Yes Arthritis, Chronic Back Pain Endocrine: Yes Diabetes, Non-Insulin dep Cancer: Yes ([place] 1979) Bone What Type of Treatment Did You: Radiation Psychosocial: No Integumentary: No Blood Disorders: No Physical Exam Vital Signs Vital Signs - First Documented 10/23/22 10/23/22 09:34 11:58 Temp 36.2 Pulse 73 Resp 16 B/P (MAP) 190/117 (141) Pulse Ox 95 O2 Delivery Room Air Capillary Refill : Less Than 3 Seconds Height, Weight, BMI Height: 5'8.00" Weight: 240lbs. oz. 108.466320kk; 34.00 BMI Method:Stated General Appearance: WD/WN, no apparent distress HEENT: other (Forced gaze deviation to the left, dry oral mucosa) Neck: normal inspection Respiratory: lungs clear, normal breath sounds, no respiratory distress, no accessory muscle use Cardiovascular: regular rate, rhythm Gastrointestinal: normal bowel sounds, non tender, soft Extremities: normal capillary refill Neurologic/Psychiatric: alert, EOM palsy (Forced gaze deviation to the left), facial droop (Right facial droop), motor weakness (Right arm, right leg), depressed affect Cra[place] Nerves: abnormal eye position Stroke Onset of Symptoms Date of Onset of Symptoms: Oct 23, 2022 Onset of Symptoms: No Symptoms onset unknown: Yes NIH Stroke Scale Assessment Select: Initial Level of Consciousness: 2=By repeated stimulation (2), Level of Consciousness-Questions: 2=Answer neither question (2), LOC Commands: 1=Performs one task (1), Gaze: Forced Deviation (2), Facial Movement (Facial Paresis): 2=Partial paralysis (2), Motor Function-Arms Right: 2=Some effort/gravity (2), Motor Function-Arms Left: 0=No drift (0), Motor Function- Legs Right: 3=No effort/gravity (3), Motor Function-Legs Left: 0=No drift (0), Limb Ataxia: 2=Present in two limbs (2), Sensory: 1=Mild to Moderate loss (1), Best Language: 1=Mild to moderat aphasia (1), Dysarthria: 1=Mild to moderate loss (1), Extinction & Inattention: 2=ProfoundHemiInattention (2), Total: 21 Stroke Thrombolytic Exclusion Age 18 or Over: Yes Acute intenal hemorrhage: No History of CVA: No Uncontrolled Coagulation Defec: No Intracranial Hemorrhage: No Severe Hypertension: No GI or Bleed: No Subarachnoid Hemorrhage: No Intracranial Neoplasm/Aneurysm: No Oral Anticoagulants: No Surgery or Trauma: No Puncture of Non-Compressible V: No Recent CPR: No Organ Biopsy: No Recent Obstetric Delivery: No Glucose: No Significant Hepatic Dysfunctio: No Bacterial Endocarditis: No Pericarditis: No Improving Symptoms: No Platelets: No Procedures/Interventions Suture Size: 5-0 Progress/Results/Core Measures Results/Orders Lab Results Laboratory Tests Test 10/23/22 09:47 10/23/22 09:50 Range/Units White Blood Count 7.5 4.3-11.0 10^3/uL Red Blood Count 4.68 4.30-5.52 10^6/uL Hemoglobin 15.1 13.3-17.7 g/dL Hematocrit 45 40-54 % Mean Corpuscular Volume 95 80-99 fL Mean Corpuscular Hemoglobin 32 25-34 pg Mean Corpuscular Hemoglobin Concent 34 32-36 g/dL Red Cell Distribution Width 13.3 10.0-14.5 % Platelet Count 228 130-400 10^3/uL Mean Platelet Volume 8.8 L 9.0-12.2 fL Immature Granulocyte % (Auto) 0 % Neutrophils (%) (Auto) 71 42-75 % Lymphocytes (%) (Auto) 18 12-44 % Monocytes (%) (Auto) 7 0-12 % Eosinophils (%) (Auto) 4 0-10 % Basophils (%) (Auto) 1 0-10 % Neutrophils # (Auto) 5.3 1.8-7.8 10^3/uL Lymphocytes # (Auto) 1.3 1.0-4.0 10^3/uL Monocytes # (Auto) 0.5 0.0-1.0 10^3/uL Eosinophils # (Auto) 0.3 0.0-0.3 10^3/uL Basophils # (Auto) 0.1 0.0-0.1 10^3/uL Immature Granulocyte # (Auto) 0.0 0.0-0.1 10^3/uL Prothrombin Time 12.8 12.2-14.7 SEC INR Comment 0.9 0.8-1.4 Activated Partial Thromboplast Time 27 24-35 SEC D-Dimer 1.41 H 0.00-0.49 UG/ML Sodium Level 138 135-145 MMOL/L Potassium Level 3.8 3.6-5.0 MMOL/L Chloride Level 102 98-107 MMOL/L Carbon Dioxide Level 21 21-32 MMOL/L Anion Gap 15 H 5-14 MMOL/L Blood Urea Nitrogen 11 7-18 MG/DL Creatinine 0.85 0.60-1.30 MG/DL Estimat Glomerular Filtration Rate 99 BUN/Creatinine Ratio 13 Glucose Level 140 H 70-105 MG/DL Calcium Level 9.3 8.5-10.1 MG/DL Corrected Calcium 9.3 8.5-10.1 MG/DL Total Bilirubin 0.5 0.1-1.0 MG/DL Aspartate Amino Transf (AST/SGOT) 15 5-34 U/L Alanine Aminotransferase (ALT/SGPT) 24 0-55 U/L Alkaline Phosphatase 60 40-136 U/L Troponin I < 0.028 <0.028 NG/ML Total Protein 7.3 6.4-8.2 GM/DL Albumin 4.0 3.2-4.5 GM/DL Glucometer 142 H 70-110 MG/DL My Orders Orders - TYRELL GOTTLIEB MD Ct Head Wo-R/O Stroke (10/23/22 ) Cbc With Automated Diff (10/23/22 09:38) Protime With Inr (10/23/22 09:38) Partial Thromboplastin Time (10/23/22 09:38) Comprehensive Metabolic Panel (10/23/22 09:38) Fibrin Degradation Products (10/23/22 09:38) Troponin I Ida (10/23/22 09:38) Chest 1 View, Ap/Pa Only (10/23/22 09:38) Ekg Tracing (10/23/22 09:38) Accucheck Stat ONCE (10/23/22 09:38) Ed Iv/Invasive Line Start (10/23/22 09:38) Ed Iv/Invasive Line Start (10/23/22 09:38) Vital Signs Stroke Patient Q15M (10/23/22 09:38) O2 (10/23/22 09:38) Monitor-Rhythm Ecg Trace Only (10/23/22 09:38) Dysphagia Screening Tool Q10MX1 (10/23/22 09:38) Post Thrombolytic Adminstratio (10/23/22 09:38) Iohexol Injection (Omnipaque 350 Mg/Ml 1 (10/23/22 10:30) Received Contrast (Hold Metformin- Contr (10/23/22 10:30) Sodium Chloride Flush (Catheter Flush Sy (10/23/22 10:30) Ns (Ivpb) (Sodium Chloride 0.9% Ivpb Bag (10/23/22 10:30) Iohexol Injection (Omnipaque 350 Mg/Ml 1 (10/23/22 10:30) Received Contrast (Hold Metformin- Contr (10/23/22 10:30) Ns (Ivpb) (Sodium Chloride 0.9% Ivpb Bag (10/23/22 10:30) Ct Head Perfusion W/ Contrast (10/23/22 ) Catheter(Urinary) Insert & Ass 03,15 (10/23/22 10:47) Lidocaine 2% (Urojet) (Xylocaine Urojet) (10/23/22 11:00) Ct Angio Head/Neck (10/23/22 ) Medications Given in ED Current Medications Medications Dose Ordered Sig/Edgar Route Start Time Stop Time Status Last Admin Dose Admin Iohexol 75 ml ONCE ONCE IV 10/23/22 10:30 10/23/22 10:31 DC 10/23/22 10:41 120 ML Sodium Chloride 10 ml NEEDED PRN IV 10/23/22 10:30 10/23/22 12:06 DC 10/23/22 10:42 10 ML Sodium Chloride 100 ml ONCE ONCE IV 10/23/22 10:30 10/23/22 10:31 DC 10/23/22 10:41 80 ML Vital Signs/I&O 10/23/22 10/23/22 10/23/22 09:34 09:34 11:58 Temp 36.2 Pulse 73 65 Resp 16 18 B/P (MAP) 190/117 (141) 181/111 Pulse Ox 95 98 97 O2 Delivery Room Air Room Air Room Air Blood Pressure Mean: 141 FSBG Bedside Testing Finger Stick Blood Glucose: 142 Blood Glucose Action Taken: PROVIDER NOTIFIED. Progress Progress Note #1: Time: 10:39 Progress Note Case discussed with Dr Drew at 1028am. would be candidate for TPA. Currently in CT for Angio and perfusion. BP 159/120 - recc BP diastolic under 110. Patient evaluation includes "stroke work-up", CBC, comprehensive metabolic panel, coags, D-dimer, EKG, chest x-ray, CT head without contrast, CT angio head and neck with perfusion study. Patient's physical exam was remarkable for profound right-sided hemineglect. Forced left-sided gaze deviation. Significant dysarthria, mild expressive aphasia. Ataxia, weakness of the right upper extremity. Hemiparesis of the right lower extremity. Regular heart, clear lungs, soft and benign abdominal exam. Significantly hypertensive on arrival with a diastolic above 110. Normal room air saturations. General estimated NIH 19-20 on arrival. Differential diagnosis based on history and physical acute hemorrhagic versus ischemic stroke. Labs and EKG and chest x-ray independently evaluated by me. CT scans read by radiology. CBC normal, Chem 12 normal except for glucose 140. Ddime 1.41; coags normal. EKG sinus, CXR unremarkable. CT's consistent with acute thrombus branc left M2 distribution. Case discussed extensively (as stated above) with stroke neurology). Good candidate for TPA and thrombectomy. However patient declining. Progress Note #2: Time: 11:26 Progress Note The patient and the did not wish to proceed with tPA or interventional radiology/Clot retrieval. The patient's Stating that the patient had an "advanced directive" that indicated he did not want extraordinary measures taken to prolong his life. I attempted for at least 20 to 25 minutes to have a discussion regarding standard of care and stroke treatment. I advised that he was a fantastic candidate for tPA and described the "clot busting" mechanism to help restore blood flow to the part of his brain that was causing the right side to not function correctly. I advised that he did in fact have a blood clot in a vessel on the left side of his head that controlled the right side. He would need to go to [place] to have a specialist remove this. She became more more agitated and at 1 point attempted to leave the ER to go get the papers to prove that he did not want anything done. I advised the patient's that I was not attempting to be in a position to argue with her but I wanted to make sure that she understood the enormity of the decision of not treating an acute stroke that was potentially fixable. I attempted to communicate the same information to the patient however I do question his ability to comprehend secondary to the stroke. He did seem as he was in the department to be able to move his right side a little bit more, more purposeful movement the longer he was in the ED. He however still had significant dysarthria, right facial droop. At 1 point he stated very clearly "I just want to ". His and I both had a difficult time understanding him when I asked the specific question "so you do not want treatment". He would become stone walling and not answer questions. He finally told his that he wanted to go home. At this point we were well over the 3-hour ceci and approaching 3 hours and 45 minutes post "last known well time". I had air methods in the department for pending transfer to [place], I had an accepting physician. I was just waiting on the okay from the patient and his for tPA. I explained to her that he likely would have profound deficits without treatment and might literally need to be in a prison. She did verbalize that her did not want to leave her with large medical bills. I stated that she would have to consider the cost of ongoing care for him at home should he become incapacitated and unable to care for himself. I mentioned to the risk of aspirating into his lungs as his speech was so poor and he was likely not swallowing effectively. I invited her to return with her at any point should she have further concerns. They insisted on being discharged. I provided in the written dischar ge instructions suggestions for hospice companies to help should he absolutely be adamant about no care and wanting comfort care only. I did have him sign an AGAINST MEDICAL ADVICE form but did provide written instructions as well. Initial ECG Impression Date: Oct 23, 2022 Initial ECG Impression Time: 09:50 Initial ECG Rate: 70 Initial ECG Rhythm: Normal Sinus Initial ECG Intervals: Normal Initial ECG Impression: Normal Diagnostic Imaging Diagonstic Imaging: CT Comments [facility], [place] NAME: WINDY YOUSSEF [facility] REC#: [id number] PT STATUS: REG ER : 1960 PHYSICIAN: TYRELL GOTTLIEB MD ADMIT DATE: 10/23/22/ER Signed Date of Exam:10/23/22 CT HEAD WO-R/O STROKE EXAMINATION: CT head without contrast. TECHNIQUE: Multiple contiguous axial images were obtained through the brain without the use of intravenous contrast. All CT scans use one or more of the following dose optimizing techniques: automated exposure control, MA and/or KvP adjustment based on patient size and exam type or iterative reconstruction. HISTORY: Right-sided weakness. Slurred speech. COMPARISON: 02/20/2019. FINDINGS: No large acute territorial ischemia, mass, or hemorrhage. No midline shift or mass effect. The ventricles, cortical sulci, and basilar cisterns are patent and unremarkable. The orbits are normal. Paranasal sinuses are normal. Mastoid air cells are clear. No soft tissue abnormality is seen. No osseus lesions or fractures are seen. IMPRESSION: 1. No large acute territorial ischemia, mass, or hemorrhage. Dictated by: Dictated on workstation # [id number] Dict: 10/23/22 0953 Trans: 10/23/22 1011 [facility] [id number] Interpreted by: NANI COATES DO Electronically signed by: NANI COATES DO 10/23/22 1011 Diagonstic Imaging: CT Comments [facility], [place] NAME: WINDY YOUSSEF [facility] REC#: [id number] PT STATUS: REG ER : 1960 PHYSICIAN: TYRELL GOTTLIEB MD ADMIT DATE: 10/23/22/ER Signed Date of Exam:10/23/22 CT HEAD PERFUSION W/ CONTRAST TECHNIQUE: CT cerebral perfusion study was performed using a dual slab technique. Post processing was performed using the RAPID software. 80 mL of Omnipaque 350 was administered. REASON FOR EXAM: Left MCA occlusion. Thrombus seen on CTA head. COMPARISON: CTA head and neck performed earlier the same date. FINDINGS: There is no significant motion artifact. The arterial inflow and venous outflow graphs are adequate. The volume of parenchyma demonstrating cerebral blood flow of less than 30% is equal to 32 mL. The volume of parenchyma showing a Tmax greater than 6 seconds is 81 mL. Parenchyma are demonstrated Tmax greater than 8 seconds equals 67 mL, and greater than 10 seconds 56 mL. Core infarct is demonstrated in the left frontoparietal region with surrounding penumbra-like pattern. IMPRESSION: 1. Core infarct in the left frontoparietal region with surrounding penumbra-like pattern. Recommend neurosurgical interventional consultation for possible thrombectomy. Called to Dr. Gottlieb at 11:16 a.m. by cvb. Dictated by: Dictated on workstation # [id number] Dict: 10/23/22 1110 Trans: 10/23/22 1133 [facility] [id number] Interpreted by: NANI COATES DO Electronically signed by: NANI COATES DO 10/23/22 1133 Diagonstic Imaging: CT Comments [facility], [place] NAME: WINDY YOUSSEF [facility] REC#: [id number] PT STATUS: REG ER : 1960 PHYSICIAN: TYRELL GOTTLIEB MD ADMIT DATE: 10/23/22/ER Signed Date of Exam:10/23/22 CT ANGIO HEAD/NECK PROCEDURE: CT angiography of the head and CT angiography of the neck with and without contrast. TECHNIQUE: Contiguous noncontrast images were obtained from the skull base through the vertex. After intravenous contrast administration, helical CT angiography of the neck was performed. Source data was reformatted into 3D MIP projections. Delayed post contrast acquisition was also obtained. Auto Exposure Controls were utilized during the CT exam to meet ALARA standards for radiation dose reduction. INDICATION: Right-sided weakness. Slurred speech. Comparison: CT head performed earlier the same date. FINDINGS: CTA Neck: The visualized portions of the aortic arch demonstrate no evidence of aneurysm or dissection. There is common origin of the carotid arteries consistent with bovine arch. The brachiocephalic artery is normal in course and caliber. The right and left common carotid origins are unremarkable. The origin of the left subclavian artery is patent. The common carotid arteries and internal carotid arteries demonstrate a mildly tortuous course. No stenosis or dissection in the carotid systems. The external carotid arteries are patent and unremarkable. The vertebral arteries are codominant. The origin of the right vertebral artery is seen and is unremarkable. The origin of the left vertebral artery is seen and is unremarkable. There is no focal stenosis seen within the neck. There is no dissection. The vertebral arteries are well visualized to up to the level of the basilar artery. The osseous structures of the cervical spine are unremarkable. Included views through the lung apices demonstrate no focal consolidation. CTA brain: No stenosis or aneurysm is seen in the intracranial portion of the bilateral ICA. There is occlusion and an M2 branch of the left MCA (image 191, series 602). The more proximal left MCA is patent. The right MCA is patent without focal stenosis. No stenosis is seen in the bilateral anterior and posterior cerebral arteries. No evidence of aneurysm the [place]. In the posterior circulation, both of the vertebral arteries demonstrate normal opacification. Both the right and left PICA arteries are identified. The basilar artery is normal in course and caliber. The terminal branch vessels including the superior cerebellar arteries unremarkable. IMPRESSION: 1. Occlusion of an M2 branch of the left MCA. 2. No stenosis or dissection the bilateral carotid and vertebral systems. 3. No evidence of aneurysm in the [place]. Dictated by: Dictated on workstation # [id number] Dict: 10/23/22 1103 Trans: 10/23/22 1114 [facility] [id number] Interpreted by: NANI COATES DO Electronically signed by: NANI COATES DO 10/23/22 1114 Diagonstic Imaging: Xray Plain Films/CT/US/NM/MRI: chest Comments [facility], [place] NAME: WINDY YOUSSEF [facility] REC#: [id number] PT STATUS: REG ER : 1960 PHYSICIAN: TYRELL GOTTLIEB MD ADMIT DATE: 10/23/22/ER Signed Date of Exam:10/23/22 CHEST 1 VIEW, AP/PA ONLY EXAMINATION: Chest 1 view HISTORY: right sided weakness COMPARISON: None available. FINDINGS: Heart size and pulmonary vasculature are normal. The lungs are clear without consolidation, pleural effusion, or pneumothorax. The osseous structures are intact. IMPRESSION: 1. No acute radiographic abnormality in the chest. Dictated by: Dictated on workstation # [id number] Dict: 10/23/22 1013 Trans: 10/23/22 1021 [id number] Interpreted by: LENCHO ROSARIO DO Electronically signed by: LENCHO ROSARIO DO 10/23/22 1021 Critical Care Note Critical Care Start Time: 09:42 Stop Time: 11:20 Total Time (minutes) 50 min critical care time in the eval and management of this acute ischemic stroke patient. Time includes serial re-evaluation, review and interpretation of labs, EKG, CXR. Discussion with radiologist regarding CT/CTA and CT perfusion studies. Discussion 3 times with stroke neurologist. Prolonged discussion with patient and regarding risks and benefits of treatment and intervention. Departure Impression Primary Impression: Acute ischemic left MCA stroke Disposition: AGAINST MEDICAL ADVICE Condition: Against Medical Advice Departure-Patient Inst. Decision time for Depature: 11:25 Referrals: TEMI NEGRON (PCP) Primary Care Physician NO,[facility] PHYSICIAN (Family) Primary Care Physician Patient Instructions: Left-Side Stroke (DC) Add. Discharge Instructions: There are multiple hospice companies in [place] that would be happy to assist you in your 's care. You can google any of them and contact them for information. He will be a risk for aspirating food and fluids into his lungs due to his speech difficulty. If it anytime you would like further evaluation feel free to come back to the emergency room for reevaluation. TYRELL GOTTLIEB MD Oct 23, 2022 09:58
[2022-10-23 10:04] LABS: CHLORIDE 102 MMOL/L (98-107); INR 0.9 (0.8-1.4); POTASSIUM 3.8 MMOL/L (3.6-5.0); PROTHROMBIN TIME PATIENT 12.8 SEC (12.2-14.7); SODIUM 138 MMOL/L (135-145)
[2022-10-23 10:05] LABS: CALCIUM 9.3 MG/DL (8.5-10.1)
[2022-10-23 10:06] LABS: GLUCOSE 140 MG/DL (70-105); TOTAL PROTEIN 7.3 GM/DL (6.4-8.2)
[2022-10-23 10:07] LABS: CARBON DIOXIDE 21 MMOL/L (21-32); FIBRIN DEGRADATION PRODUCTS 1.41 UG/ML (0.00-0.49)
[2022-10-23 10:08] LABS: BILIRUBIN,TOTAL 0.5 MG/DL (0.1-1.0)
[2022-10-23 10:09] LABS: ALKALINE PHOSPHATASE 60 U/L (40-136)
[2022-10-23 10:10] LABS: CREATININE SERUM 0.85 MG/DL (0.60-1.30); GFR ESTIMATED 99
[2022-10-23 10:11] LABS: BUN/CREATININE RATIO 13
[2022-10-23 10:13] LABS: ALANINE AMINOTRANSFERASE 24 U/L (0-55)
--- NOTE | 2022-10-23 10:19 | Diagnostic Imaging Report ---
EXAMINATION: Chest 1 view HISTORY: right sided weakness COMPARISON: None available. FINDINGS: Heart size and pulmonary vasculature are normal. The lungs are clear without consolidation, pleural effusion, or pneumothorax. The osseous structures are intact. IMPRESSION: 1. No acute radiographic abnormality in the chest. Dictated by: Dictated on workstation # [id number]
[2022-10-23] MEDS ORDERED: CATHETER FLUSH 10 ML SYR IV PRN (10:30)
[2022-10-23] MEDS ORDERED: IOHEXOL 350 MG/ML 100 ML (OMNIPAQUE 350) VIAL IV ONE ×2 (10:30)
[2022-10-23] MEDS ORDERED: NS 100 ML (IVPB) BAG IV ONE ×2 (10:30)
[2022-10-23] MEDS ORDERED: HOLD METFORMIN - RECEIVED CONTRAST 20 ML VIAL IV SCH ×2 (10:30)
[2022-10-23] MEDS ORDERED: LIDOCAINE UROJET 2% GEL 10 ML PKG TOP ONE (11:00)
--- NOTE | 2022-10-23 11:14 | Diagnostic Imaging Report ---
PROCEDURE: CT angiography of the head and CT angiography of the neck with and without contrast. TECHNIQUE: Contiguous noncontrast images were obtained from the skull base through the vertex. After intravenous contrast administration, helical CT angiography of the neck was performed. Source data was reformatted into 3D MIP projections. Delayed post contrast acquisition was also obtained. Auto Exposure Controls were utilized during the CT exam to meet ALARA standards for radiation dose reduction. INDICATION: Right-sided weakness. Slurred speech. Comparison: CT head performed earlier the same date. FINDINGS: CTA Neck: The visualized portions of the aortic arch demonstrate no evidence of aneurysm or dissection. There is common origin of the carotid arteries consistent with bovine arch. The brachiocephalic artery is normal in course and caliber. The right and left common carotid origins are unremarkable. The origin of the left subclavian artery is patent. The common carotid arteries and internal carotid arteries demonstrate a mildly tortuous course. No stenosis or dissection in the carotid systems. The external carotid arteries are patent and unremarkable. The vertebral arteries are codominant. The origin of the right vertebral artery is seen and is unremarkable. The origin of the left vertebral artery is seen and is unremarkable. There is no focal stenosis seen within the neck. There is no dissection. The vertebral arteries are well visualized to up to the level of the basilar artery. The osseous structures of the cervical spine are unremarkable. Included views through the lung apices demonstrate no focal consolidation. CTA brain: No stenosis or aneurysm is seen in the intracranial portion of the bilateral ICA. There is occlusion and an M2 branch of the left MCA (image 191, series 602). The more proximal left MCA is patent. The right MCA is patent without focal stenosis. No stenosis is seen in the bilateral anterior and posterior cerebral arteries. No evidence of aneurysm the [place]. In the posterior circulation, both of the vertebral arteries demonstrate normal opacification. Both the right and left PICA arteries are identified. The basilar artery is normal in course and caliber. The terminal branch vessels including the superior cerebellar arteries unremarkable. IMPRESSION: 1. Occlusion of an M2 branch of the left MCA. 2. No stenosis or dissection the bilateral carotid and vertebral systems. 3. No evidence of aneurysm in the [place]. Dictated by: Dictated on workstation # [id number]
--- NOTE | 2022-10-23 11:19 | Diagnostic Imaging Report ---
TECHNIQUE: CT cerebral perfusion study was performed using a dual slab technique. Post processing was performed using the RAPID software. 80 mL of Omnipaque 350 was administered. REASON FOR EXAM: Left MCA occlusion. Thrombus seen on CTA head. COMPARISON: CTA head and neck performed earlier the same date. FINDINGS: There is no significant motion artifact. The arterial inflow and venous outflow graphs are adequate. The volume of parenchyma demonstrating cerebral blood flow of less than 30% is equal to 32 mL. The volume of parenchyma showing a Tmax greater than 6 seconds is 81 mL. Parenchyma are demonstrated Tmax greater than 8 seconds equals 67 mL, and greater than 10 seconds 56 mL. Core infarct is demonstrated in the left frontoparietal region with surrounding penumbra-like pattern. IMPRESSION: 1. Core infarct in the left frontoparietal region with surrounding penumbra-like pattern. Recommend neurosurgical interventional consultation for possible thrombectomy. Called to Dr. Davis at 11:16 a.m. by cvb. Dictated by: Dictated on workstation # [id number]
[2022-10-23 11:58] VITALS: BP 181/111
== END 2022-10-23 11:58 | disposition left against medical advice (07) ==
LOC: EDUNIT# 09:34 → ER 09:35
DX: I63.512 Cerebral infarction due to unspecified occlusion or stenosis of left middle cerebral artery (principal); G81.91 Hemiplegia, unspecified affecting right dominant side; R29.810 Facial weakness; R47.81 Slurred speech; R47.1 Dysarthria and anarthria; R27.0 Ataxia, unspecified; R48.2 Apraxia; R29.721 NIHSS score 21
CPT/HCPCS: 0042T; 36415; 70450; 70496; 70498; 71045; 80053; 82947; 84484; 85025; 85379; 85610; 85730; 93005

== ENCOUNTER 2022-10-26 21:09 | Emergency (ER) | payer OTHER ==
[~2022-10-26] VITALS: Ht 182 cm; Wt 113.0 kg
--- NOTE | 2022-10-26 21:30 | ED Neurological Problem ---
General Chief Complaint: Neurological Problems Stated Complaint: UNABLE TO USE RIGHT ARM/SLURRED SPEECH Source: patient, old records, spouse History of Present Illness Date Seen by Provider: Oct 26, 2022 Time Seen by Provider: 21:16 Allergies and Home Medications Allergies Coded Allergies: Judy Known Allergies (Unverified Allergy, Mild, 09/11/18) Patient Home Medication List Hydrocodone/Acetaminophen (Hydrocodone/Acetaminophen 5 MG/325 MG TAB) 1 Each Tablet, 1 TAB PO Q6H Prescribed by: HERBERT VACA on 04/19/20904 Sumatriptan Succinate (Sumatriptan Succinate) 50 Mg Tablet, 50 MG PO UD, (Reported) Entered as Reported by: TATYANA MENDEZ on 04/19/20904 Past Sguzckn-Edieun-Aecmbw Hx Immunizations Up To Date First/Initial COVID19 Vaccinat: none Seasonal Allergies Seasonal Allergies: No Past Medical History Surgeries: Yes (FEMUR TUMOR, L SHOULDER, KIDNEY STONE) Respiratory: No Currently Using CPAP: No Currently Using BIPAP: No Cardiac: Yes (STRESS INDUCED ANGINA WITH CLEAN HEART CATH, AGE 38) Angina Neurological: Yes Headaches /Migraines Genitourinary: Yes Kidney Stones Gastrointestinal: No Musculoskeletal: Yes Arthritis, Chronic Back Pain Endocrine: Yes Diabetes, Non-Insulin dep Cancer: Yes ([place] 1979) Bone What Type of Treatment Did You: Radiation Psychosocial: No Integumentary: No Blood Disorders: No Physical Exam Vital Signs Vital Signs - First Documented 10/26/22 21:17 Temp 36.9 Pulse 82 Resp 20 B/P (MAP) 174/111 (132) Pulse Ox 95 O2 Delivery Room Air Capillary Refill : Height, Weight, BMI Height: 5'8.00" Weight: 240lbs. oz. 108.938978qc; 34.00 BMI Method:Stated Stroke NIH Stroke Scale Assessment Level of Consciousness: 0=Alert (0), Level of Consciousness-Questions: 0=Answers both month/age (0), Gaze: Normal (0), Visual Lo: 0=No visual loss (0), Facial Movement (Facial Paresis): 0=Normal symmetrical mnt (0), Motor Function-Arms Right: 1=Drift (1), Motor Function-Arms Left: 0=No drift (0), Motor Function-Legs Right: 0=No drift (0), Motor Function-Legs Left: 0=No drift (0), Limb Ataxia: 1=Present in one limb (1), Sensory: 0=Normal:no loss (0), Best Language: 1=Mild to moderat aphasia (1), Dysarthria: 0=Normal (0), Extinction & Inattention: 0=No abnormality (0), Total: 3 Stroke Thrombolytic Exclusion Age 18 or Over: Yes Acute intenal hemorrhage: Yes History of CVA: Yes Uncontrolled Coagulation Defec: No Intracranial Hemorrhage: Yes Severe Hypertension: Yes GI or Bleed: No Subarachnoid Hemorrhage: No Intracranial Neoplasm/Aneurysm: No Oral Anticoagulants: No Surgery or Trauma: No Puncture of Non-Compressible V: No Recent CPR: No Organ Biopsy: No Recent Obstetric Delivery: No Glucose: No Significant Hepatic Dysfunctio: No Bacterial Endocarditis: No Pericarditis: No Improving Symptoms: Yes Platelets: No TPA Contraindication: Yes IV - TPa Received IV - TPa Procedure Performed?: No (ONSET 01/23/23) Procedures/Interventions Suture Size: 5-0 Progress/Results/Core Measures Results/Orders Lab Results Laboratory Tests Test 10/26/22 21:35 Range/Units White Blood Count 10.6 4.3-11.0 10^3/uL Red Blood Count 4.78 4.30-5.52 10^6/uL Hemoglobin 15.5 13.3-17.7 g/dL Hematocrit 45 40-54 % Mean Corpuscular Volume 94 80-99 fL Mean Corpuscular Hemoglobin 32 25-34 pg Mean Corpuscular Hemoglobin Concent 35 32-36 g/dL Red Cell Distribution Width 13.2 10.0-14.5 % Platelet Count 256 130-400 10^3/uL Mean Platelet Volume 8.8 L 9.0-12.2 fL Immature Granulocyte % (Auto) 0 % Neutrophils (%) (Auto) 62 42-75 % Lymphocytes (%) (Auto) 25 12-44 % Monocytes (%) (Auto) 9 0-12 % Eosinophils (%) (Auto) 2 0-10 % Basophils (%) (Auto) 1 0-10 % Neutrophils # (Auto) 6.6 1.8-7.8 10^3/uL Lymphocytes # (Auto) 2.7 1.0-4.0 10^3/uL Monocytes # (Auto) 1.0 0.0-1.0 10^3/uL Eosinophils # (Auto) 0.2 0.0-0.3 10^3/uL Basophils # (Auto) 0.1 0.0-0.1 10^3/uL Immature Granulocyte # (Auto) 0.0 0.0-0.1 10^3/uL Prothrombin Time 12.8 12.2-14.7 SEC INR Comment 0.9 0.8-1.4 Activated Partial Thromboplast Time 29 24-35 SEC Sodium Level 135 135-145 MMOL/L Potassium Level 3.6 3.6-5.0 MMOL/L Chloride Level 101 98-107 MMOL/L Carbon Dioxide Level 17 L 21-32 MMOL/L Anion Gap 17 H 5-14 MMOL/L Blood Urea Nitrogen 10 7-18 MG/DL Creatinine 0.80 0.60-1.30 MG/DL Estimat Glomerular Filtration Rate 101 BUN/Creatinine Ratio 13 Glucose Level 82 70-105 MG/DL Calcium Level 9.3 8.5-10.1 MG/DL Corrected Calcium 9.2 8.5-10.1 MG/DL Magnesium Level 2.1 1.6-2.4 MG/DL Total Bilirubin 0.6 0.1-1.0 MG/DL Aspartate Amino Transf (AST/SGOT) 20 5-34 U/L Alanine Aminotransferase (ALT/SGPT) 20 0-55 U/L Alkaline Phosphatase 68 40-136 U/L Total Protein 7.6 6.4-8.2 GM/DL Albumin 4.1 3.2-4.5 GM/DL Acetaminophen Level < 10 L 10-30 UG/ML Serum Alcohol 150 H <10 MG/DL My Orders Orders - GARLAND LOPEZ DO Ed Iv/Invasive Line Start (10/26/22 21:26) Ekg Tracing (10/26/22 21:) Monitor-Rhythm Ecg Trace Only (10/26/22 21:) Ct Head Wo-R/O Stroke (10/26/22 21:) Acetaminophen (10/26/22 21:) Alcohol (10/26/22 21:26) Cbc With Automated Diff (10/26/22 21:) Comprehensive Metabolic Panel (10/26/22 21:) Drug Screen Stat (Urine) (10/26/22 21:) Magnesium (6/10/23 21:26) Protime With Inr (10/26/22 21:26) Partial Thromboplastin Time (10/26/22 21:26) Ua Culture If Indicated (10/26/22 21:26) Metoprolol Tartrate Injection (Lopressor (10/26/22 22:30) Fentanyl Inj (Sublimaze Injection) (10/26/22 23:15) Ed Iv/Invasive Line Start (10/26/22 23:03) Lactated Ringers (Lr 1000 Ml Iv Solution (10/26/22 23:15) Medications Given in ED Current Medications Medications Dose Ordered Sig/Edgar Route Start Time Stop Time Status Last Admin Dose Admin Fentanyl Citrate 50 mcg ONCE ONCE IVP 10/26/22 23:15 10/26/22 23:16 DC 10/26/22 23:24 50 MCG Lactated Ringer's 1,000 ml @ 0 mls/hr Q0M ONCE IV 10/26/22 23:15 10/26/22 23:16 DC 10/26/22 23:24 0 MLS/HR Vital Signs/I&O 10/26/22 10/26/22 21:17 22:41 Temp 36.9 Pulse 82 72 Resp 20 18 B/P (MAP) 174/111 (132) 123/87 (99) Pulse Ox 95 94 O2 Delivery Room Air Room Air Departure Departure-Patient Inst. Referrals: TEMI NEGRON (PCP) Primary Care Physician NO,LOCAL PHYSICIAN (Family) Primary Care Physician GARLAND LOPEZ DO Oct 26, 2022 21:30
[2022-10-26 21:43] LABS: BASOPHILS # (AUTO) 0.1 10^3/uL (0.0-0.1); BASOPHILS % (AUTO) 1 % (0-10); EOSINOPHILS # (AUTO) 0.2 10^3/uL (0.0-0.3); EOSINOPHILS % (AUTO) 2 % (0-10); HEMATOCRIT 45 % (40-54); HEMOGLOBIN 15.5 g/dL (13.3-17.7); LYMPHOCYTES # (AUTO) 2.7 10^3/uL (1.0-4.0); LYMPHOCYTES % (AUTO) 25 % (12-44); MEAN CORPUSCULAR HEMOGLOBIN 32 pg (25-34); MEAN CORPUSCULAR HGB CONC 35 g/dL (32-36); MEAN CORPUSCULAR VOLUME 94 fL (80-99); MEAN PLATELET VOLUME 8.8 fL (9.0-12.2); MONOCYTES % (AUTO) 9 % (0-12); NEUTROPHILS # (AUTO) 6.6 10^3/uL (1.8-7.8); NEUTROPHILS % (AUTO) 62 % (42-75); PLATELET COUNT 256 10^3/uL (130-400); WHITE BLOOD COUNT 10.6 10^3/uL (4.3-11.0)
[2022-10-26 21:58] LABS: ALBUMIN 4.1 GM/DL (3.2-4.5); CHLORIDE 101 MMOL/L (98-107); INR 0.9 (0.8-1.4); POTASSIUM 3.6 MMOL/L (3.6-5.0); PROTHROMBIN TIME PATIENT 12.8 SEC (12.2-14.7); SODIUM 135 MMOL/L (135-145)
[2022-10-26 21:59] LABS: CALCIUM 9.3 MG/DL (8.5-10.1)
--- NOTE | 2022-10-26 21:59 | Diagnostic Imaging Report ---
Clinical indications: Patient unable to use right arm and slurred speech. Exam: Axial CT scan of the brain without IV contrast with coronal and sagittal reformatted images. Auto Exposure Controls were utilized during the CT exam to meet ALARA standards for radiation dose reduction. Comparison: Head CT without contrast dated 11/12/2022. CT angiogram of the head/neck and CT brain perfusion dated 10/23/2022. Findings: There is interval development of a patchy area of intraparenchymal hemorrhage involving the posterior left temporal/parietal region. There is a small amount of adjacent parenchymal edema. This area measures at least 3.8 cm x 3.0 cm in greatest axial dimension. There is no significant brain herniation or midline shift. This area of intra-parenchymal hemorrhage is in the area of general low density involving the posterior left insula, posterior left temporal lobe and left parietal lobe region concerning for acute/subacute infarct. This correlates to the area of diffusion abnormality on the comparison study. Hemorrhagic transformation is of concern. There are no other areas of intracranial hemorrhage. There is no intraventricular blood. There is no hydrocephalus. Basal cisterns are unremarkable. Extracranial soft tissues, skull, and orbits are unremarkable. Paranasal sinuses and mastoid air cells are clear. IMPRESSION: There is interval development of a small to moderate size area of intraparenchymal hemorrhage involving the posterior left temporal lobe/parietal lobe region with small amount of adjacent parenchymal edema. This is in the area of low density concerning for acute/subacute infarct involving the posterior left insula, posterior left temporal lobe and left parietal lobe region. These findings are concerning for hemorrhagic transformation. There is no significant brain herniation or midline shift. Results of this report discussed with Dr. Florence Zhao via the telephone on 10/26/2022 at 2148 hours. Dictated by: Dictated on workstation # [id number]
[2022-10-26 22:00] LABS: GLUCOSE 82 MG/DL (70-105); TOTAL PROTEIN 7.6 GM/DL (6.4-8.2)
[2022-10-26 22:01] LABS: CARBON DIOXIDE 17 MMOL/L (21-32)
[2022-10-26 22:02] LABS: BILIRUBIN,TOTAL 0.6 MG/DL (0.1-1.0)
[2022-10-26 22:04] LABS: ALKALINE PHOSPHATASE 68 U/L (40-136); GFR ESTIMATED 101
[2022-10-26 22:05] LABS: BUN/CREATININE RATIO 13
[2022-10-26 22:06] LABS: ACETAMINOPHEN < 10 UG/ML (10-30)
[2022-10-26 22:07] LABS: ALANINE AMINOTRANSFERASE 20 U/L (0-55); MAGNESIUM 2.1 MG/DL (1.6-2.4)
[2022-10-26] MEDS ORDERED: meTOprolol 5 MG/5 ML (LOPRESSOR) VIAL IV ONE (22:30)
[2022-10-26] MEDS ORDERED: LACTATED RINGERS 1,000 ML IV ONE (23:15)
[2022-10-26] MEDS ORDERED: fentaNYL INJ 100 MCG/2 ML AMP IVP ONE (23:15)
[2022-10-26 23:57] VITALS: BP 127/87
== END 2022-10-27 00:02 | disposition short-term general hospital (02) ==
LOC: EDUNIT# 21:09 → ER 21:13
DX: R53.1 Weakness (principal); R47.81 Slurred speech; Z28.310 Unvaccinated for COVID-19
CPT/HCPCS: 36415; 70450; 80053; 80320; 80329; 83735; 85025; 85610; 85730; 93005; 93041

== ENCOUNTER 2022-10-29 01:47 | Observation (INO) | payer OTHER ==
[~2022-10-29] VITALS: Ht 175.3 cm; Wt 121.3 kg
--- NOTE | 2022-10-29 02:01 | ED Fall/Injury ---
General Chief Complaint: Trauma-Non Activation Stated Complaint: FALL Nursing Triage Note: patient passout and fell off porch. laceration to rt eye. recently diagnosed with stroke Source: patient, EMS Exam Limitations: no limitations History of Present Illness Date Seen by Provider: Oct 29, 2022 Time Seen by Provider: 01:47 Initial Comments 62-year-old male presents via EMS after he fell from his porch. He states "I cannot walk." He also states the lights are hurting his eyes from a headache. He has a very complicated recent medical history. On Friday he came in for what was thought to be a large vessel occlusion on the left side with severe right-sided weakness, dysarthria. He ended up leaving AGAINST MEDICAL ADVICE because he did not want to take a helicopter due to cost concerns. He ended up coming back on Friday and ultimately was transferred to [facility] when he was found to have an intraparenchymal bleed. He was ultimately discharged with close monitoring. He states he was on the porch tonight and "the same thing happened." He was walking on the porch and had a severe headache and fell down. He states he has not been able to stand up since that time. All other systems reviewed and negative except documented per HPI. Voice recognition software was used to help create this chart Allergies and Home Medications Allergies Coded Allergies: NKANo Known Allergies (Unverified Allergy, Mild, 09/11/18) Patient Home Medication List Home Medication List Reviewed: Yes Hydrocodone/Acetaminophen (Hydrocodone/Acetaminophen 5 MG/325 MG TAB) 1 Each Tablet, 1 TAB PO Q6H Prescribed by: HERBERT VACA on 04/19/20904 Sumatriptan Succinate (Sumatriptan Succinate) 50 Mg Tablet, 50 MG PO UD, (Reported) Entered as Reported by: TATYANA MENDEZ on 04/19/20904 Review of Systems Review of Systems Constitutional: see HPI Past Wqxcnfa-Lbrbpn-Ilimgz Hx Patient Social History Tobacco Use?: Yes Use of E-Cig and/or Vaping dev: No Substance use?: No Alcohol Use?: No Immunizations Up To Date First/Initial COVID19 Vaccinat: none Second COVID19 Vaccination Ankit: none Third COVID19 Vaccination Date: none Seasonal Allergies Seasonal Allergies: No Past Medical History Surgeries: Yes (FEMUR TUMOR, L SHOULDER, KIDNEY STONE) Respiratory: No Currently Using CPAP: No Currently Using BIPAP: No Cardiac: Yes (STRESS INDUCED ANGINA WITH CLEAN HEART CATH, AGE 38) Angina Neurological: Yes Headaches /Migraines Genitourinary: Yes Kidney Stones Gastrointestinal: No Musculoskeletal: Yes Arthritis, Chronic Back Pain Endocrine: Yes Diabetes, Non-Insulin dep Cancer: Yes ([place] 1979) Bone What Type of Treatment Did You: Radiation Psychosocial: No Integumentary: No Blood Disorders: No Physical Exam Vital Signs Vital Signs - First Documented 10/29/22 10/29/22 01:50 02:30 Temp 35.8 Pulse 71 Resp 20 B/P (MAP) 124/83 (97) Pulse Ox 97 O2 Delivery Room Air O2 Flow Rate 2.00 Capillary Refill : Less Than 3 Seconds Height, Weight, BMI Height: 5'8.00" Weight: 240lbs. oz. 108.127476de; 28.00 BMI Method:Stated General Appearance: WD/WN, no apparent distress, other (smells of alcohol) HEENT: pharynx normal, other (patient will not open his eyes for exam.) Neck: non-tender, supple Cardiovascular: regular rate, rhythm, no murmur Respiratory: chest non-tender, lungs clear, normal breath sounds, no respiratory distress, no accessory muscle use Gastrointestinal: normal bowel sounds, non tender, soft, no organomegaly Back: normal inspection Extremities: normal range of motion, non-tender, normal inspection, no pedal edema Neurologic/Psychiatric: no motor/sensory deficits, alert, normal mood/affect, oriented x 3 Skin: normal color, warm/dry Procedures/Interventions Suture Size: 5-0 Progress/Results/Core Measures Results/Orders Lab Results Laboratory Tests Test 10/29/22 01:54 10/29/22 02:00 Range/Units White Blood Count 8.9 4.3-11.0 10^3/uL Red Blood Count 4.45 4.30-5.52 10^6/uL Hemoglobin 14.3 13.3-17.7 g/dL Hematocrit 42 40-54 % Mean Corpuscular Volume 94 80-99 fL Mean Corpuscular Hemoglobin 32 25-34 pg Mean Corpuscular Hemoglobin Concent 34 32-36 g/dL Red Cell Distribution Width 13.2 10.0-14.5 % Platelet Count 240 130-400 10^3/uL Mean Platelet Volume 9.1 9.0-12.2 fL Immature Granulocyte % (Auto) 1 % Neutrophils (%) (Auto) 60 42-75 % Lymphocytes (%) (Auto) 27 12-44 % Monocytes (%) (Auto) 9 0-12 % Eosinophils (%) (Auto) 3 0-10 % Basophils (%) (Auto) 1 0-10 % Neutrophils # (Auto) 5.4 1.8-7.8 10^3/uL Lymphocytes # (Auto) 2.4 1.0-4.0 10^3/uL Monocytes # (Auto) 0.8 0.0-1.0 10^3/uL Eosinophils # (Auto) 0.2 0.0-0.3 10^3/uL Basophils # (Auto) 0.1 0.0-0.1 10^3/uL Immature Granulocyte # (Auto) 0.0 0.0-0.1 10^3/uL Prothrombin Time 12.7 12.2-14.7 SEC INR Comment 0.9 0.8-1.4 Activated Partial Thromboplast Time 26 24-35 SEC Sodium Level 136 135-145 MMOL/L Potassium Level 3.5 L 3.6-5.0 MMOL/L Chloride Level 103 98-107 MMOL/L Carbon Dioxide Level 17 L 21-32 MMOL/L Anion Gap 16 H 5-14 MMOL/L Blood Urea Nitrogen 9 7-18 MG/DL Creatinine 0.83 0.60-1.30 MG/DL Estimat Glomerular Filtration Rate 100 BUN/Creatinine Ratio 11 Glucose Level 118 H 70-105 MG/DL Calcium Level 9.2 8.5-10.1 MG/DL Corrected Calcium 9.4 8.5-10.1 MG/DL Magnesium Level 1.8 1.6-2.4 MG/DL Total Bilirubin 0.3 0.1-1.0 MG/DL Aspartate Amino Transf (AST/SGOT) 13 5-34 U/L Alanine Aminotransferase (ALT/SGPT) 15 0-55 U/L Alkaline Phosphatase 61 40-136 U/L Troponin I < 0.028 <0.028 NG/ML Total Protein 7.1 6.4-8.2 GM/DL Albumin 3.8 3.2-4.5 GM/DL Serum Alcohol 211 H <10 MG/DL Glucometer 128 H 70-110 MG/DL My Orders Orders - ONEALPILAR DO Cbc With Automated Diff (10/29/22 01:54) Protime With Inr (10/29/22:54) Partial Thromboplastin Time (10/29/22:54) Comprehensive Metabolic Panel (10/29/22 01:54) Troponin I [place] (10/29/22 01:54) Chest 1 View, Ap/Pa Only (10/29/22 01:54) Ekg Tracing (10/29/22:54) Accucheck Stat ONCE (10/29/22:54) Ed Iv/Invasive Line Start (10/29/22 01:54) Vital Signs Stroke Patient Q15M (10/29/22 01:54) Ct Head Wo-R/O Stroke (10/29/22:54) Monitor-Rhythm Ecg Trace Only (10/29/22:54) Dysphagia Screening Tool Q10MX1 (10/29/22 01:54) Alcohol (10/29/22 01:54) Ed Admission (Communication) (10/29/22 03:02) Vital Signs/I&O 10/29/22 10/29/22 01:50 02:30 Temp 35.8 Pulse 71 Resp 20 B/P (MAP) 124/83 (97) Pulse Ox 97 98 O2 Delivery Room Air Nasal Cannula O2 Flow Rate 2.00 Blood Pressure Mean: 97 Comment Sinus rhythm rate of 62 bpm. Normal intervals. Normal axis. No ST or T wave abnormality. No ectopy. Departure Communication (Admissions) Patient continued to have slurred speech during his emergency department stay. It is unclear if this is from intoxication at this point or worsening or new stroke. CT head initially shows no acute changes and is similar in appearance to his previous CT. There is no active or new bleeding. He has no other focal neurologic deficits on exam at this time. Given the complexity of his recent me dical history and recent stroke, new fall with similar presentation and was admitted the patient to the hospitalist. He and his are agreeable to admission at this time. Impression Primary Impression: Acute ischemic left MCA stroke Additional Impressions: Slurred speech Difficulty walking Disposition: ADMITTED INPATIENT Condition: Stable Admissions Decision to Admit Reason: Admit from ER (General) Departure-Patient Inst. Referrals: TEMI NEGRON (PCP) Primary Care Physician NO,LOCAL PHYSICIAN (Family) Primary Care Physician PILAR NO DO Oct 29, 2022 02:01
[2022-10-29 02:13] LABS: BASOPHILS # (AUTO) 0.1 10^3/uL (0.0-0.1); BASOPHILS % (AUTO) 1 % (0-10); EOSINOPHILS # (AUTO) 0.2 10^3/uL (0.0-0.3); EOSINOPHILS % (AUTO) 3 % (0-10); HEMATOCRIT 42 % (40-54); HEMOGLOBIN 14.3 g/dL (13.3-17.7); LYMPHOCYTES # (AUTO) 2.4 10^3/uL (1.0-4.0); LYMPHOCYTES % (AUTO) 27 % (12-44); MEAN CORPUSCULAR HEMOGLOBIN 32 pg (25-34); MEAN CORPUSCULAR HGB CONC 34 g/dL (32-36); MEAN CORPUSCULAR VOLUME 94 fL (80-99); MEAN PLATELET VOLUME 9.1 fL (9.0-12.2); MONOCYTES # (AUTO) 0.8 10^3/uL (0.0-1.0); MONOCYTES % (AUTO) 9 % (0-12); NEUTROPHILS # (AUTO) 5.4 10^3/uL (1.8-7.8); NEUTROPHILS % (AUTO) 60 % (42-75); PLATELET COUNT 240 10^3/uL (130-400); WHITE BLOOD COUNT 8.9 10^3/uL (4.3-11.0)
[2022-10-29 02:27] LABS: INR 0.9 (0.8-1.4); PROTHROMBIN TIME PATIENT 12.7 SEC (12.2-14.7)
[2022-10-29 02:37] LABS: ALANINE AMINOTRANSFERASE 15 U/L (0-55); ALBUMIN 3.8 GM/DL (3.2-4.5); ALKALINE PHOSPHATASE 61 U/L (40-136); BILIRUBIN,TOTAL 0.3 MG/DL (0.1-1.0); BUN/CREATININE RATIO 11; CALCIUM 9.2 MG/DL (8.5-10.1); CARBON DIOXIDE 17 MMOL/L (21-32); CHLORIDE 103 MMOL/L (98-107); CREATININE SERUM 0.83 MG/DL (0.60-1.30); GFR ESTIMATED 100; GLUCOSE 118 MG/DL (70-105); POTASSIUM 3.5 MMOL/L (3.6-5.0); SODIUM 136 MMOL/L (135-145); TOTAL PROTEIN 7.1 GM/DL (6.4-8.2)
[2022-10-29 03:43] VITALS: BP 124/85
[2022-10-29] MEDS ORDERED: ONDANSETRON 4 MG/2 ML (SDV) Z0FRAN IV PRN (04:00)
[2022-10-29] MEDS ORDERED: CATHETER FLUSH 10 ML SYR IVP PRN (04:00)
[2022-10-29 04:15] VITALS: BP 110/79
[2022-10-29] MEDS ORDERED: NS IV 500 ML 500 ML IV PRN (05:30)
[2022-10-29] MEDS ORDERED: ANTACID SUSP 30 ML UDC (MYLANTA) PO PRN (06:00)
[2022-10-29] MEDS ORDERED: DexMEDEtomidine 250 ML DRIP 250 ML IV SCH (06:00)
[2022-10-29] MEDS ORDERED: MAGNESIUM 1 GM/100 ML IVPB 100 ML IV SCH (06:00)
[2022-10-29] MEDS ORDERED: KCL 20 MEQ TAB (K-DUR) PO SCH (06:00)
[2022-10-29] MEDS ORDERED: POTASSIUM BICARB 20 MEQ (EFFER-K) TABLET PO SCH (06:00)
[2022-10-29] MEDS ORDERED: LORazepam INJ 2 MG/ML (ATIVAN) VIAL IM/IV PRN (06:00)
[2022-10-29] MEDS ORDERED: POTASSIUM CL 10MEQ/50ML IVPB 50 ML IV SCH (06:00)
[2022-10-29] MEDS ORDERED: 1/2 NS IV SOLUTION 1,000 ML IV PRN (06:00)
[2022-10-29] MEDS ORDERED: LORazepam INJ 2 MG/ML (ATIVAN) VIAL IV PRN (06:00)
[2022-10-29] MEDS ORDERED: D5 1/2 NS 1000 ML IV SOLUTION 1,000 ML IV PRN (06:00)
[2022-10-29] MEDS ORDERED: LORazepam 1 MG (ATIVAN) TAB PO PRN (06:00)
[2022-10-29] MEDS ORDERED: CATHETER FLUSH 10 ML SYR IVP SCH (06:00)
[2022-10-29] MEDS ORDERED: SENNA W/DOCUSATE (SENOKOT S) TABLET PO PRN (06:00)
[2022-10-29] MEDS ORDERED: LORazepam INJ 2 MG/ML (ATIVAN) VIAL IVP ONE (06:00)
--- NOTE | 2022-10-29 06:17 | History & Physical ---
History of Present Illness Source: patient Exam Limitations: no limitations Date Seen 10/29/22 Time Seen by a Provider: 11:00 Attending Physician Sarah Blood PCP Admitting Physician: Isa Coyne DO Attending Physician: Isa Coyne DO Referring Physician Date of Admission Oct 29, 2022 at 03:13 Home Medications & Allergies Home Medications Reviewed patient Home Medication Reconciliation performed by pharmacy medication reconciliations wire technician and/or nursing. Patients Allergies have been reviewed. Allergies Allergies Coded Allergies NKANo Known Allergies (Unverified Allergy, Mild, 09/11/18) Past Thwablc-Hczcuf-Dtakvq Hx Patient Social History Alcohol Beverage of Choice: Whiskey, Vodka Smoking Status: Light Tobacco Smoker Immunizations Up To Date Date of Influenza Vaccine: Mar 19, 1990 Seasonal Allergies Seasonal Allergies: No Past Medical History Currently Using CPAP: No Currently Using BIPAP: No Cardiac: Angina Neurological: Headaches /Migraines Genitourinary: Kidney Stones Musculoskeletal: Arthritis, Chronic Back Pain Endocrine: Diabetes, Non-Insulin dep Cancer: Bone What Type of Treatment Did You: Radiation History of Blood Disorders: No Physical Exam Physical Exam Vital Signs Vital Signs - First Documented 10/29/22 10/29/22 01:50 02:30 Temp 35.8 Pulse 71 Resp 20 B/P (MAP) 124/83 (97) Pulse Ox 97 O2 Delivery Room Air O2 Flow Rate 2.00 Capillary Refill : Less Than 3 Seconds Height, Weight, BMI Height: 5'8.00" Weight: 240lbs. oz. 108.257650qu; 39.47 BMI Method:Stated Results Results/Procedures Labs Laboratory Tests 10/29/22 01:54 Patient resulted labs reviewed. Clinical Quality Measures DVT/VTE Risk/Contraindication: Other: recent hemorrhagic cva ISA COYNE DO Oct 29, 2022 06:17
--- NOTE | 2022-10-29 06:38 | Short Stay Summary-Hospitalist ---
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 Source: patient Exam Limitations: clinical condition Date Seen 10/29/22 Time Seen by a Provider: 00:00 Attending Physician aSrah Blood PCP Admitting Physician: Isa Coyne DO Attending Physician: Isa Coyne DO Referring Physician Date of Admission Oct 29, 2022 at 03:13 Home Medications & Allergies Home Medications Reviewed patient Home Medication Reconciliation performed by pharmacy medication reconciliations soil technician and/or nursing. Patients Allergies have been reviewed. Allergies Allergies Coded Allergies NKANo Known Allergies (Unverified Allergy, Mild, 09/11/18) Past Ikuymae-Xwlpxh-Yzbtan Hx Patient Social History Tobacco Use?: Yes Tobacco type used: Cigars Smoking Status: Light Tobacco Smoker Use of E-Cig and/or Vaping dev: No Substance use?: No Alcohol Use?: Yes Alcohol type: Beer, Hard Liquor Alcohol Frequency: Daily Pt feels they are or have been: Unable to obtain Immunizations Up To Date Date of Influenza Vaccine: Mar 19, 1988 First/Initial COVID19 Vaccinat: none Second COVID19 Vaccination Ankit: none Tetanus Booster (TDap): Unknown Seasonal Allergies Seasonal Allergies: No Current Status Advance Directives: Yes Advance Directive Location: Scanned into EMR Communicates: Verbally Primary Language: Turkish Preferred Spoken Language: Turkish Is interpretation needed?: No Implanted or Applied Medical D: None Past Medical History Currently Using CPAP: No Currently Using BIPAP: No Angina Headaches /Migraines Kidney Stones Arthritis, Chronic Back Pain Diabetes, Non-Insulin dep Bone What Type of Treatment Did You: Radiation Blood Disorders: No Review of Systems Constitutional: see HPI Physical Exam Physical Exam Vital Signs Vital Signs - First Documented 10/29/22 10/29/22 01:50 02:30 Temp 35.8 Pulse 71 Resp 20 B/P (MAP) 124/83 (97) Pulse Ox 97 O2 Delivery Room Air O2 Flow Rate 2.00 Capillary Refill : Less Than 3 Seconds Height, Weight, BMI Height: 5'8.00" Weight: 240lbs. oz. 108.891249vv; 39.47 BMI Method:Stated General Appearance: Chronically ill Results Results/Procedures Labs Laboratory Tests 10/29/22 01:54 Patient resulted labs reviewed. 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 Clinical Quality Measures DVT/VTE Risk/Contraindication: Other: recent hemorrhagic cva ISA COYNE DO Oct 29, 2022 06:38
--- NOTE | 2022-10-29 06:49 | Diagnostic Imaging Report ---
EXAMINATION: Chest radiograph, portable AP view. DATE: 10/29/2022 2:23 AM INDICATION: 62-year-old male, fall. Laceration above the eye. Chest pain. COMPARISON: October 23, 2022. FINDINGS: Heart size and mediastinal contours are unchanged. There is no identified pneumothorax. There is no large pleural effusion. There is no identified focal airspace consolidation. IMPRESSION: 1. No identified acute cardiopulmonary abnormality. Dictated by: Dictated on workstation # [id number]
--- NOTE | 2022-10-29 06:49 | Diagnostic Imaging Report ---
PROCEDURE: CT head without contrast. Date: October 29, 2022. Indication: 62-year-old male, fall. Laceration above right eye. Recent stroke. TECHNIQUE: Multiple contiguous axial images were obtained through the brain without the use of intravenous contrast. Auto Exposure Controls were utilized during the CT exam to meet ALARA standards for radiation dose reduction. Comparison: CT head without contrast October 26, 2022. Findings: There is a skin contour abnormality just lateral to the right orbit likely reflecting site of soft tissue injury. There is no identified radiopaque foreign body. The globes are grossly intact. There is no retro-orbital hematoma. There is no identified skull fracture. The visualized portions of the paranasal sinuses, mastoid air cells, and middle ears are well aerated. There is no identified skull fracture. There is abnormal low-attenuation in the left frontal lobe, frontoparietal region, and extending near the left insula. There is also high attenuation at this location which is prominent for petechial hemorrhage and does raise at least concern for potential hemorrhagic transformation of infarct. There is mild cerebral volume loss. There is no midline shift. Impression: 1. Area of abnormal attenuation in the left frontal lobe, left frontoparietal region, and left posterior insula with internal high attenuation. This is fairly similar to October 26, 2022. This likely relates to area of infarct. A high attenuation is prominent for petechial hemorrhage and does raise concern for hemorrhagic transformation. 2. No midline shift. 3. No hydrocephalus. Dictated by: Dictated on workstation # [id number]
[2022-10-29] MEDS ORDERED: THIAMINE 100 MG (VITAMIN B-1) TAB PO SCH (07:00)
[2022-10-29] MEDS ORDERED: MULTIVIT W/MINERALS TAB (THERAGRAN M) PO SCH (07:00)
--- NOTE | 2022-10-29 08:32 | Tele-ICU Consult ---
History of Present Illness History of Present Illness Date Seen by Provider: Oct 29, 2022 Time Seen by Provider: 08:27 History of Present Illness Tele-ICU Physician , Progress Note ) Service provided via interactive audio and video telecommunications E-CARE system to a patient admitted to ICU bed in [facility]. Patient is seen today due to persistent need of ICU care Available chart/ vitals / labs / Images reviewed Video assessment done using teleICU camera, rest of exam as per RN Discussed with RN 62 yo M Fell on porch, has trouble waking, photophobia Had recent admission for right seded weakness, thought to have ICB, signed out AMA [was going to be transferred to ] CT head shows probable ICB left frontal parietal area PMH renal stone obesity Allergies and Home Medications Allergies Coded Allergies: NKANo Known Allergies (Unverified Allergy, Mild, 09/11/18) Home Medications Hydrocodone/Acetaminophen 1 Each Tablet, 1 TAB PO Q6H Prescribed by: HERBERT VACA on 04/19/20 0905 Sumatriptan Succinate 50 Mg Tablet, 50 MG PO UD, (Reported) Past Medical/Social/Family Hx Patient Social History Tobacco Use?: Yes Tobacco type used: Cigars Smoking Status: Light Tobacco Smoker Use of E-Cig and/or Vaping dev: No Substance use?: No Alcohol Use?: Yes Alcohol type: Beer, Hard Liquor Alcohol Frequency: Daily Pt stated abuse/neglect: Unable to obtain Immunizations Up To Date Influenza Vaccine Up-to-Date: No; Not Current First/Initial COVID19 Vaccinat: none Second COVID19 Vaccination Ankit: none Tetanus Booster (TDap): Unknown Current Status Advance Directives: Yes Advance Directive Location: Scanned into EMR Communicates: Verbally Primary Language: Armenian Preferred Spoken Language: Armenian Is interpretation needed?: No Implanted or Applied Medical D: None Focused Exam Height, Weight, BMI Height: 5'8.00" Weight: 240lbs. oz. 108.382571rv; 39.47 BMI Method:Stated Exam Exam Patient acknowledged, consented, and participated in this virtual visit which was conducted using real time audio/video Vital Signs Date Time Temp Pulse Resp B/P (MAP) Pulse Ox O2 Delivery O2 Flow Rate FiO2 10/29/22 05:45 71 28 162/117 (122) 97 Nasal Cannula 2.00 10/29/22 05:30 61 12 115/78 (93) 94 Nasal Cannula 2.00 10/29/22 05:15 58 14 106/79 (88) 96 Nasal Cannula 2.00 10/29/22 05:00 57 14 108/66 (80) 96 Nasal Cannula 2.00 10/29/22 04:48 56 16 119/82 (94) 96 Nasal Cannula 2.00 10/29/22 04:30 64 18 99 10/29/22 04:15 61 84 110/79 97 10/29/22 04:15 62 110/79 (87) 96 Nasal Cannula 2.00 10/29/22 04:04 Nasal Cannula 2.00 10/29/22 04:00 60 42 96 10/29/22 04:00 96 Nasal Cannula 2.00 10/29/22 03:45 60 65 99 10/29/22 03:45 61 10/29/22 03:43 61 124/85 (101) 100 Nasal Cannula 2.00 10/29/22 03:43 124/85 10/29/22 03:35 88 20 124/86 98 Nasal Cannula 2.00 10/29/22 02:30 98 Nasal Cannula 2.00 10/29/22 01:50 35.8 71 20 124/83 (97) 97 Room Air Height & Weight Height: 5'8.00" Weight: 240lbs. oz. 108.392506oz; 39.47 BMI Method:Stated Capillary Refill: Less Than 3 Seconds Gastrointestinal: normal bowel sounds, non tender, soft, no organomegaly Results Lab Laboratory Tests 10/29/22 01:54 Assessment/Plan Assessment/Plan left frontal parietal ICB Critical Care: Critically Ill Patient IBETH IBARRA MD Oct 29, 2022 08:32
[2022-10-29] MEDS ORDERED: MAGNESIUM OXIDE (MAG-OX)400 MG TAB PO SCH (09:00)
[2022-10-29] MEDS ORDERED: THIAMINE INJECTION 100 MG, FOLIC ACID INJECTION 1 MG, MAGNESIUM SULFATE 2 GM, VITAMIN M... IV SCH ×5 (09:00)
[2022-10-29] MEDS ORDERED: FOLIC ACID 1 MG TAB PO SCH (09:00)
--- NOTE | 2022-10-29 13:53 | Occ Therapy Progress Note ---
Therapy Progress Note OT order received, patent no longer at [facility] JOSE L LOVING OT Oct 29, 2022 13:53
--- NOTE | 2022-11-13 14:52 | Physician Query Clarification ---
PQ-Further Specificity Admission/Discharge Admission Date: Oct 29, 2022 at 03:13 Discharge Date: Oct 29, 2022 at 06:06 Dr. No, The medical record reflects the following clinical scenario: History/Risk Factors: fall off porch, difficulty walking Clinical Findings: laceration rt eye Treatment: suture 5-0 Question: Can you further specify specific site rt eye i.e eyelid and length of the laceration per the clinical indicators above? Please document a response in the Progress Notes or Discharge Summary. 1. rt eyelid, 2.5 cm or less 2. rt eyelid, 2.6 cm to 5.0 cm 3. Other, with explanation of the clinical findings. 4. Clinically undetermined, no explanation for the clinical findings. PHYSICIAN RESPONSE Can you specify per above: Other, explanation/clinical finding (There was no eyelid laceartion) In responding to this query, please exercise your independent professional judgment. The purpose of this communication is to more accurately reflect the complexity of your patients condition. The fact that a question is asked does not imply that any particular answer is desired or expected. Thank you for your timely response to this clarification. Requestors name: Alina THIS PHYSICIAN QUERY FORM IS A PERMANENT PART OF THE MEDICAL RECORD ALINA TAYLOR Nov 13, 2022 14:52 PILAR NO DO Nov 20, 2022 06:11
== END 2022-10-29 06:06 | disposition left against medical advice (07) ==
LOC: EDUNIT# 01:47 → ER 01:48 → ICU 03:13
PROVIDERS: ADMIT Internal Medicine; ATTEND Internal Medicine
DX: F10.129 Alcohol abuse with intoxication, unspecified (principal); Y90.7 Blood alcohol level of 200-239 mg/100 ml; F10.139 Alcohol abuse with withdrawal, unspecified; Z86.73 Personal history of transient ischemic attack (TIA), and cerebral infarction without residual deficits; R47.81 Slurred speech; R26.2 Difficulty in walking, not elsewhere classified; F17.290 Nicotine dependence, other tobacco product, uncomplicated; Z79.891 Long term (current) use of opiate analgesic; Z79.899 Other long term (current) drug therapy
CPT/HCPCS: 36415; 70450; 71045; 80053; 80320; 82947; 83735; 84484; 85025; 85610; 85730; 87081; 93005; 93041; G0378